=== PATIENT | female | born 1940 | race African-American/Black ===

== ENCOUNTER 2019-02-07 10:38 | Inpatient (IN) | payer MEDICAID, MEDICARE ==
[2019-02-07 11:25] LABS: Bilirubin Negative (Negative); Blood, Urine Negative (Negative); Clarity Clear (Clear); Glucose, Urine (Dipstick) Normal (Negative); Leukocyte Negative Leu/uL (Negative); Nitrite Negative (Negative); Protein, Urine (Dipstick) Negative (Neg-Trace); Urobilinogen Normal mg/dL (Less than 2)
[2019-02-07 11:39] LABS: #Basophils 0.1 thou/uL (0.0-0.2); #Eosinphils 0.1 thou/uL (0.0-0.7); #Lymphocytes 1.2 thou/uL (1.20-3.40); #Monocytes 0.5 thou/uL (0.11-0.59); #Neutrophils 9.6 thou/uL (1.40-6.50); %Basophils 0.6 % (0.0-1.0); %Eosinophils 0.6 % (0.0-10.0); %Lymphocytes 10.7 % (21.0-51.0); %Monocytes 4.4 % (0.0-10.0); %Neutrophils 83.7 % (42.0-75.0); Hemoglobin 12.1 g/dL (12.0-16.0); Mean Corpuscular HGB CONC 29.3 g/dL (32.0-36.0); Mean Corpuscular Hemoglobin 19.2 pg (27.0-31.0); Mean Corpuscular Volume 65.6 fL (78.0-98.0); Mean Platelet Volume 7.9 fL (7.4-10.4); Platelet Count 203 thou/uL (130-400); RBC Distribution Width 20.9 % (11.5-14.5); White Blood Cell (WBC) Count 11.5 thou/uL (4.8-10.8)
--- NOTE | 2019-02-07 11:49 | CT ---
CT BRAIN NONCONTRAST: DATE: 02/07/2019 HISTORY: 78-year-old female with altered mental status FINDINGS: There is no evidence of acute intra-axial or extra-axial hemorrhage. There is no midline shift or any other mass effect. There is no extra-axial fluid collection. There is no evidence of obstructive hydrocephalus. Calvarium is intact. There is diffuse brain parenchymal volume loss. There are low att enuation areas in the white matter. These are nonspecific, but in a patient of this age, they are probably chronic ischemic white matter changes due to microvascular atherosclerosis. Tiny old lacunar infarction in left basal ganglia or anterior limb of left internal capsule. No interval change overall compared to 03/25/2013. Bilateral mastoid effusions again noted. Frontal, sphenoid, and ethmo id sinuses are grossly clear. IMPRESSION: 1) No acute intracranial findings. 2) involutional changes and chronic ischemic white matter changes. 3) tiny old lacunar infarction in left corpus striatum. 4) bilateral mastoid effusions.
[2019-02-07 11:53] LABS: Hypochromia MODERATE=16-30 cells (100X) (0-5/hpf); MDiff Complete? YES; Microcytosis MODERATE=15-30 cells (100X) (0-5/hpf); Platelet Morphology Comment Appears Adequate; Polychromasia SLIGHT = 2-3 cells (100X) (0-2/hpf); Schistocytes SLIGHT = 2-5 cells (100X) (0-1/hpf); Target Cells SLIGHT = 2-5 cells (100X) (0-1/hpf)
--- NOTE | 2019-02-07 11:59 | RAD ---
PORTABLE CHEST: Date: 02/07/19 HISTORY: Cough. COMPARISON: 02/25/13 study. FINDINGS: Heart size is enlarged. There are atherosclerotic changes of the aorta. There is some linear change i n the lung bases, slightly more prominent in the right base, probably related to scar versus atelecta sis. No confluent infiltrative process seen. IMPRESSION: 1. Cardiomegaly. 2. Bibasilar interstitial lung change consistent with some atelectasis versus scarring. POS: [facility]
[2019-02-07] MEDS ORDERED: Piperacillin/Tazobactam 4.5 GM VIAL ONE (12:06)
[2019-02-07 12:12] LABS: ALT (SGPT) 15 U/L (8-55); AST (SGOT) 14 U/L (5-34); Albumin 4.1 g/dL (3.4-4.8); Alkaline Phosphatase 118 U/L (40-150); Anion Gap 14 mmol/L (10-20); BUN (Urea Nitrogen) 27 mg/dL (9.8-20.1); Bilirubin, Total 0.3 mg/dL (0.2-1.2); Calc. Creatinine Clearance 0 mL/min (70-130); Calcium 9.7 mg/dL (7.8-10.44); Carbon Dioxide 23 mmol/L (23-31); Chloride 107 mmol/L (98-107); Estimated GFR-MDRD 45; Globulin 3.3 g/dL (2.4-3.5); Glucose 135 mg/dL (83-110); Potassium 4.4 mmol/L (3.5-5.1); Protein, Total 7.4 g/dL (6.0-8.3); Sodium 140 mmol/L (136-145)
[2019-02-07] MEDS ORDERED: Vancomycin HCl 500 MG VIAL ONE (12:40)
[2019-02-07] MEDS ORDERED: Bisacodyl 5 MG TAB PO PRN (13:34)
[2019-02-07] MEDS ORDERED: Acetaminophen 650 MG Suppository PR PRN (13:34)
[2019-02-07] MEDS ORDERED: Acetaminophen 325 MG TAB PO PRN (13:34)
[2019-02-07] MEDS ORDERED: Dextrose 50% Abboject 50 ML SYRINGE SLOW IVP PRN (13:36)
[2019-02-07] MEDS ORDERED: Dextrose 5% in Water 1,000 ML IV PRN (13:36)
[2019-02-07] MEDS ORDERED: HumaLOG 300 UNITS/3 ML VIAL SC PRN (13:36)
--- NOTE | 2019-02-07 14:10 | HP ---
PRIMARY CARE PROVIDER: Jose Cruz Lira MD. CHIEF COMPLAINT: Altered mental status. HISTORY OF PRESENT ILLNESS: Ms. Castrejon is a pleasant 78-year-old lady, who was seen at [facility] on February 07, 2019. The patient is unable to provide any significant history. Her daughter, Kinga, is by the bedside, but she is unable to provide any significant history either. Collateral history was obtained from review of medical records and discussion with the emergency room physician. Ms. Castrejon is a resident at [facility]. She was reportedly found to be less responsive than usual. She also had a cough. She apparently had foul-smelling urine. She was therefore brought to the emergency room. The patient is mumbling, talking about her mother. She is unable to answer any questions. REVIEW OF SYSTEMS: All systems were reviewed and found to be negative except for the pertinent positives mentioned above. PAST MEDICAL HISTORY: 1. Diabetes mellitus type 2. 2. Gastroesophageal reflux disease. 3. Osteoarthritis. 4. Hypertension. 5. Alzheimer disease. 6. Asthma. 7. Chronic obstructive pulmonary disease. 8. Renal failure. PAST SURGICAL HISTORY: None. PSYCHIATRIC HISTORY: Schizophrenia. ALLERGIES: NO KNOWN DRUG ALLERGIES. CURRENT MEDICATIONS: 1. Aspirin 81 mg daily. 2. Iron 325 mg daily. 3. Allopurinol 100 mg daily. 4. Advair Diskus 1 puff 2 times a day. CODE STATUS: I discussed her code status with her daughter. The patient is full code. FAMILY HISTORY: No family history of premature coronary artery disease. SOCIAL HISTORY: No history of tobacco use, alcohol or recreational drug use. PHYSICAL EXAMINATION: GENERAL: On examination, Ms. Castrejon is awake and alert, not in acute distress. VITAL SIGNS: Blood pressure is 107/80, pulse 99, respiratory rate 24, and oxygen saturation 98% on room air. She is afebrile. EYES: No scleral icterus, no conjunctival pallor. ENT: Moist mucosal membranes, no oropharyngeal erythema or exudates. NECK: Supple, nontender, trachea is midline. RESPIRATORY: Accessory muscles of breathing are not active. Chest wall movements are symmetric bilaterally. Lungs are clear to auscultation without wheeze, rhonchi, or crepitations. CARDIOVASCULAR: S1 and S2 are heard, regular. Peripheral pulses palpable. No carotid bruit. No pericardial rub. ABDOMEN: Soft, nontender, bowel sounds are heard, no hepatomegaly, no splenomegaly. LYMPHATIC: No cervical lymphadenopathy. NEUROLOGIC: Full neurologic examination was not possible secondary to the patient's noncooperation. There is no facial droop. Deep tendon reflexes are 2+. MUSCULOSKELETAL: The patient is able to move all 4 extremities. SKIN: No rashes or subcutaneous nodules. PSYCHIATRIC: Normal mood, normal affect, unable to assess orientation to person , place, or time. LABORATORY DATA AND IMAGING DATA: Ms. Castrejon's labs and investigations were reviewed. I reviewed her electrocardiogram, which shows normal sinus rhythm, no ST changes to suggest an acute coronary syndrome. I also reviewed her chest x-ray, which shows bibasilar infiltrates. Noncontrast CT scan of the brain did not show any acute intracranial findings. She has leukocytosis with 11,500 white cells, of which 83.7% are neutrophils. Hemoglobin and platelet count are normal. She has elevated creatinine of 1.38, last known creatinine 1.44 on March 26, 2013. Blood urea nitrogen is elevated at 27. Comprehensive metabolic profile is otherwise unremarkable. Lactic acid is elevated at 2.4. Urinalysis is negative for nitrite and leukocyte esterase. ASSESSMENT AND PLAN: Ms. Castrejon is a pleasant 78-year-old lady, who was seen at [facility] on February 07, 2019. Her problem list includes: 1. Sepsis: Ms. Castrejon is presenting with sepsis, most likely secondary to pneumonia. She will be admitted to the hospital for further management. 2. Pneumonia: She will be treated with Zosyn for pneumonia. We will follow blood cultures as well. Further management depending on how she responds to this line of therapy. 3. Chronic kidney disease stage 3: This appears to be stable. 4. Diabetes mellitus type 2: The patient does not appear to be on any diabetes medications at this time. We will start her on Accu-Cheks and insulin sliding scale. 5. Chronic obstructive pulmonary disease: This appears to be stable. 6. Hypertension: We will resume the patient's home medications, monitor vital signs, and titrate antihypertensives as needed. 7. Alzheimer disease: We will resume home medications once clarified. Many thanks for allowing me to participate in your patient's care. Please feel free to contact me with any questions or concerns. LEVEL OF RISK: High. LEVEL OF COMPLEXITY: High. Job ID: [id number] [facility] SYSTEM[facility]os
[2019-02-07 15:45] LABS: Lactic Acid 0.8 mmol/L (0.5-2.2)
[2019-02-07 17:06] VITALS: BMI 22.8
[2019-02-07] MEDS: Piperacillin/Tazobactam 4.5 GM in Sodium Chloride 0.9% 100 ML IVPB SCH (19:38)
[2019-02-08] MEDS: Piperacillin/Tazobactam 4.5 GM in Sodium Chloride 0.9% 100 ML IVPB SCH ×3 (04:51→20:14)
[2019-02-08 07:07] LABS: Hemoglobin 10.8 g/dL (12.0-16.0); Mean Corpuscular HGB CONC 30.3 g/dL (32.0-36.0); Mean Corpuscular Hemoglobin 19.8 pg (27.0-31.0); Mean Corpuscular Volume 65.1 fL (78.0-98.0); RBC Distribution Width 20.5 % (11.5-14.5); Red Blood Cell (RBC) Count 5.49 mill/uL (4.20-5.40); White Blood Cell (WBC) Count 8.9 thou/uL (4.8-10.8)
[2019-02-08 07:19] LABS: Anion Gap 13 mmol/L (10-20); BUN (Urea Nitrogen) 24 mg/dL (9.8-20.1); Calc. Creatinine Clearance 29 mL/min (70-130); Calcium 9.1 mg/dL (7.8-10.44); Carbon Dioxide 22 mmol/L (23-31); Chloride 108 mmol/L (98-107); Estimated GFR-MDRD 40; Glucose 97 mg/dL (83-110); Potassium 4.7 mmol/L (3.5-5.1); Sodium 138 mmol/L (136-145)
[2019-02-08 07:50] LABS: #Eosinphils 0.2 thou/uL (0.0-0.7); #Lymphocytes 1.8 thou/uL (1.20-3.40); #Monocytes 0.8 thou/uL (0.11-0.59); #Neutrophils 6.1 thou/uL (1.40-6.50); %Basophils 0.1 % (0.0-1.0); %Monocytes 8.7 % (0.0-10.0); %Neutrophils 69.1 % (42.0-75.0); Anisocytosis MODERATE=16-30 cells (100X) (0-5/hpf); Hypochromia MODERATE=16-30 cells (100X) (0-5/hpf); MDiff Complete? YES; Mean Platelet Volume 8.9 fL (7.4-10.4); Microcytosis MODERATE=15-30 cells (100X) (0-5/hpf); Platelet Count 197 thou/uL (130-400); Platelet Morphology Comment Appears Adequate; Polychromasia SLIGHT = 2-3 cells (100X) (0-2/hpf)
[2019-02-08] MEDS ORDERED: Enoxaparin Sodium 40 MG/0.4 ML SYRINGE SC SCH (09:00)
[2019-02-08] MEDS ORDERED: Ondansetron ODT 8 MG TAB PO PRN (10:38)
[2019-02-08] MEDS: Polyethylene Glycol OPTH DROP 15 ML BOT EA EYE SCH ×2 (14:41→20:16)
--- NOTE | 2019-02-08 16:52 | PDOC.HOSPP ---
- Subjective Encounter Date: 02/08/19 Encounter Time: 09:00 Subjective: Pt seen for followup re: pneumonia. Pt unable to provide any history, could not complete ROS. - Objective Vital Signs & Weight: Vital Signs (12 hours) Temp Pulse Resp BP Pulse Ox 02/08/19 16:00 97.5 F L 98 18 140/79 96 02/08/19 12:00 98.1 F 84 20 146/79 H 99 02/08/19 08:21 98.4 F 100 17 118/61 90 L 02/08/19 08:00 92 L 02/08/19 06:14 97.7 F 97 18 152/72 H 95 Weight Admit Weight 137 lb Weight 137 lb I&O: 02/07/19 02/08/19 02/09/19 06:59 06:59 06:59 Intake Total 300 Output Total 450 Balance -150 Result Diagrams: 02/08/19 06:52 02/08/19 06:52 Additional Labs: Accuchecks 02/08/19 02/08/19 02/08/19 16:10 11:15 05:58 POC Glucose 156 H 106 97 02/07/19 02/07/19 19:44 17:08 POC Glucose 178 H 91 Labs and MARs reviewed by ks Hospitalist ROS - Medication Medications: Active Medications Generic Name Dose Route Start Last Admin Trade Name Mannq PRN Reason Stop Dose Admin Enoxaparin Sodium 40 mg 02/08/19 09:00 02/08/19 08:29 Lovenox SC 40 mg 0900 KARI Administration Piperacillin Sod/Tazobactam 100 mls @ 200 mls/hr 02/07/19 20:00 02/08/19 11: 18 Sod 4.5 gm/ Sodium Chloride IVPB 100 mls 0400,1200,2000 KARI Administration Propylene Glycol 1 drop 02/08/19 15:00 02/08/19 14:41 Systane Opth Drop 15ml Bot EA EYE 1 drop TID KARI Administration - Exam General Appearance: awake alert ENT: moist mucosa Neck: supple, no JVD Heart: RRR, no rubs Respiratory: CTAB Gastrointestinal: soft, non-tender, normal bowel sounds Skin: normal turgor Musculoskeletal: normal tone, normal strength Psychiatric - other findings: Unable to assess Hosp A/P (1) Pneumonia Code(s): J18.9 - PNEUMONIA, UNSPECIFIED ORGANISM Status: Acute (2) Chronic kidney disease, stage 3 Code(s): N18.3 - CHRONIC KIDNEY DISEASE, STAGE 3 (MODERATE) Status: Chronic (3) DM2 (diabetes mellitus, type 2) Status: Chronic (4) Alzheimers disease Code(s): G30.9 - ALZHEIMER'S DISEASE, UNSPECIFIED; F02.80 - DEMENTIA IN OTH DISEASES CLASSD ELSWHR W/O BEHAVRL DISTURB Status: Chronic (5) GERD (gastroesophageal reflux disease) Code(s): K21.9 - GASTRO-ESOPHAGEAL REFLUX DISEASE WITHOUT ESOPHAGITIS Status: Chronic (6) COPD (chronic obstructive pulmonary disease) Status: Chronic (7) Asthma Code(s): J45.909 - UNSPECIFIED ASTHMA, UNCOMPLICATED Status: Chronic - Plan plan discussed w/ family, continue antibiotics Continue IV Zosyn, follow blood cultures. Reasonable control of blood pressure and blood sugars. COPD/asthma stable. Continue quetiapine for agitation.
[2019-02-08] MEDS: Mometasone/Formoterol 120 PUFF INHALER INH SCH (18:25)
[2019-02-09] MEDS: Piperacillin/Tazobactam 4.5 GM in Sodium Chloride 0.9% 100 ML IVPB SCH ×2 (03:15→11:55)
[2019-02-09] MEDS: Mometasone/Formoterol 120 PUFF INHALER INH SCH ×2 (06:57→18:53)
[2019-02-09] MEDS: Allopurinol 100 MG TAB PO SCH (08:26)
[2019-02-09] MEDS: Aspirin Chewable 81 MG TAB PO SCH (08:26)
[2019-02-09] MEDS: Multivitamin W/ Minerals 1 TAB PO SCH (08:26)
[2019-02-09] MEDS: Ferrous Sulfate 325 MG TAB PO SCH (08:26)
[2019-02-09] MEDS: Enoxaparin Sodium 30 MG/0.3 ML SYRINGE SC SCH (08:27)
[2019-02-09] MEDS: Polyethylene Glycol OPTH DROP 15 ML BOT EA EYE SCH ×3 (08:27→23:06)
[2019-02-09 11:38] LABS: Anion Gap 14 mmol/L (10-20); BUN (Urea Nitrogen) 22 mg/dL (9.8-20.1); Calc. Creatinine Clearance 31 mL/min (70-130); Calcium 9.2 mg/dL (7.8-10.44); Carbon Dioxide 21 mmol/L (23-31); Chloride 107 mmol/L (98-107); Estimated GFR-MDRD 42; Glucose 89 mg/dL (83-110); Potassium 4.5 mmol/L (3.5-5.1); Sodium 137 mmol/L (136-145)
[2019-02-09 12:14] LABS: #Eosinphils 0.3 thou/uL (0.0-0.7); #Lymphocytes 1.8 thou/uL (1.20-3.40); #Monocytes 0.7 thou/uL (0.11-0.59); #Neutrophils 4.9 thou/uL (1.40-6.50); %Basophils 0.3 % (0.0-1.0); %Eosinophils 3.9 % (0.0-10.0); %Lymphocytes 23.9 % (21.0-51.0); %Monocytes 8.6 % (0.0-10.0); %Neutrophils 63.2 % (42.0-75.0); Anisocytosis MODERATE=16-30 cells (100X) (0-5/hpf); Burr Cells SLIGHT = 2-5 cells (100X) (0-1/hpf); Elliptocytes SLIGHT = 2-5 cells (100X) (0-1/hpf); Hemoglobin 11.5 g/dL (12.0-16.0); Hypochromia SLIGHT = 6-15 cells (100X) (0-5/hpf); MDiff Complete? YES; Mean Corpuscular HGB CONC 29.8 g/dL (32.0-36.0); Mean Corpuscular Hemoglobin 19.9 pg (27.0-31.0); Mean Corpuscular Volume 66.8 fL (78.0-98.0); Mean Platelet Volume 8.3 fL (7.4-10.4); Microcytosis MODERATE=15-30 cells (100X) (0-5/hpf); Platelet Count 172 thou/uL (130-400); Platelet Morphology Comment Appears Adequate; RBC Distribution Width 21.1 % (11.5-14.5); Red Blood Cell (RBC) Count 5.79 mill/uL (4.20-5.40); Schistocytes SLIGHT = 2-5 cells (100X) (0-1/hpf); Target Cells SLIGHT = 2-5 cells (100X) (0-1/hpf); White Blood Cell (WBC) Count 7.7 thou/uL (4.8-10.8)
--- NOTE | 2019-02-09 17:26 | PDOC.HOSPP ---
- Subjective Encounter Date: 02/09/19 Encounter Time: 09:20 Subjective: Pt seen for followup re: pneumonia. Pt is nonverbal, unable to complete ROS. - Objective Vital Signs & Weight: Vital Signs (12 hours) Temp Pulse Resp BP Pulse Ox 02/09/19 08:00 97 02/09/19 07:53 97.6 F 89 20 151/76 H 97 Weight Admit Weight 137 lb Weight 137 lb I&O: 02/08/19 02/09/19 02/10/19 06:59 06:59 06:59 Intake Total 300 500 Output Total 450 600 Balance -150 -100 Result Diagrams: 02/09/19 10:59 02/09/19 10:59 Additional Labs: Accuchecks 02/09/19 02/09/19 02/09/19 16:15 11:29 06:36 POC Glucose 118 H 87 94 02/09/19 02/08/19 05:03 19:22 POC Glucose 67 L 171 H Hospitalist ROS - Medication Medications: Active Medications Generic Name Dose Route Start Last Admin Trade Name Freq PRN Reason Stop Dose Admin Acetaminophen 650 mg 02/07/19 13:34 02/08/19 20:16 Tylenol PO 650 mg Q4H PRN Administration Headache/Fever/Mild Pain (1-3) Allopurinol 100 mg 02/09/19 09:00 02/09/19 08:26 Zyloprim PO 100 mg DAILY KARI Administration Aspirin 81 mg 02/09/19 09:00 02/09/19 08:26 Aspirin Chewable PO 81 mg DAILY KARI Administration Enoxaparin Sodium 30 mg 02/09/19 09:00 02/09/19 08:27 Lovenox SC 30 mg 09 KARI Administration Ferrous Sulfate 325 mg 02/09/19 09:00 02/09/19 08:26 Feosol PO 325 mg DAILY KARI Administration Piperacillin Sod/Tazobactam 100 mls @ 200 mls/hr 02/07/19 20:00 02/09/19 11: 55 Sod 4.5 gm/ Sodium Chloride IVPB 100 mls 0400,1200,2000 KARI Administration Iron/Minerals/Multivitamins 1 tab 02/09/19 09:00 02/09/19 08:26 Theragran M PO 1 tab DAILY KARI Administration Mometasone Furoate/Formoterol Fumar 2 puff 02/08/19 18:30 02/09/19 06:57 Dulera 100 Mcg/5 Mcg Inhaler INH 2 puff BID-RT KARI Administration Propylene Glycol 1 drop 02/08/19 15:00 02/09/19 14:54 Systane Opth Drop 15ml Bot EA EYE 1 drop TID KARI Administration Quetiapine Fumarate 25 mg 02/08/19 21:00 02/09/19 08:26 Seroquel PO 25 mg BID KARI Administration - Exam General Appearance: NAD Eye: anicteric sclera ENT: moist mucosa Neck: supple Heart: RRR Respiratory: CTAB Gastrointestinal: soft, non-tender Musculoskeletal: normal tone Psychiatric: normal affect Hosp A/P (1) Pneumonia Code(s): J18.9 - PNEUMONIA, UNSPECIFIED ORGANISM Status: Acute (2) Chronic kidney disease, stage 3 Code(s): N18.3 - CHRONIC KIDNEY DISEASE, STAGE 3 (MODERATE) Status: Chronic (3) DM2 (diabetes mellitus, type 2) Status: Chronic (4) Alzheimers disease Code(s): G30.9 - ALZHEIMER'S DISEASE, UNSPECIFIED; F02.80 - DEMENTIA IN OTH DISEASES CLASSD ELSWHR W/O BEHAVRL DISTURB Status: Chronic (5) GERD (gastroesophageal reflux disease) Code(s): K21.9 - GASTRO-ESOPHAGEAL REFLUX DISEASE WITHOUT ESOPHAGITIS Status: Chronic (6) COPD (chronic obstructive pulmonary disease) Status: Chronic (7) Asthma Code(s): J45.909 - UNSPECIFIED ASTHMA, UNCOMPLICATED Status: Chronic - Plan Switch to oral antibiotics, patient improving. HTN controlled. COPD/asthma stable. Continue Seroquel.
[2019-02-10 06:31] LABS: #Eosinphils 0.2 thou/uL (0.0-0.7); #Lymphocytes 1.6 thou/uL (1.20-3.40); #Monocytes 0.5 thou/uL (0.11-0.59); #Neutrophils 4.6 thou/uL (1.40-6.50); %Basophils 0.4 % (0.0-1.0); %Eosinophils 3.4 % (0.0-10.0); %Lymphocytes 22.7 % (21.0-51.0); %Monocytes 6.5 % (0.0-10.0); Hemoglobin 11.1 g/dL (12.0-16.0); Mean Corpuscular HGB CONC 29.4 g/dL (32.0-36.0); Mean Corpuscular Hemoglobin 19.5 pg (27.0-31.0); Mean Corpuscular Volume 66.2 fL (78.0-98.0); Mean Platelet Volume 8.6 fL (7.4-10.4); Platelet Count 193 thou/uL (130-400); RBC Distribution Width 21.3 % (11.5-14.5); Red Blood Cell (RBC) Count 5.71 mill/uL (4.20-5.40); White Blood Cell (WBC) Count 6.9 thou/uL (4.8-10.8)
[2019-02-10] MEDS: Mometasone/Formoterol 120 PUFF INHALER INH SCH ×2 (06:35→18:02)
[2019-02-10 06:43] LABS: Anion Gap 14 mmol/L (10-20); BUN (Urea Nitrogen) 25 mg/dL (9.8-20.1); Calc. Creatinine Clearance 27 mL/min (70-130); Calcium 9.3 mg/dL (7.8-10.44); Carbon Dioxide 20 mmol/L (23-31); Chloride 107 mmol/L (98-107); Estimated GFR-MDRD 36; Glucose 86 mg/dL (83-110); Potassium 5.4 mmol/L (3.5-5.1); Sodium 136 mmol/L (136-145)
[2019-02-10] MEDS: Ferrous Sulfate 325 MG TAB PO SCH (08:35)
[2019-02-10] MEDS: Allopurinol 100 MG TAB PO SCH (08:35)
[2019-02-10] MEDS: Aspirin Chewable 81 MG TAB PO SCH (08:36)
[2019-02-10] MEDS: Multivitamin W/ Minerals 1 TAB PO SCH (08:36)
[2019-02-10] MEDS: Polyethylene Glycol OPTH DROP 15 ML BOT EA EYE SCH ×3 (08:36→20:16)
[2019-02-10] MEDS: Enoxaparin Sodium 30 MG/0.3 ML SYRINGE SC SCH (08:36)
--- NOTE | 2019-02-10 14:50 | PQF ---
CLINICAL DOCUMENTATION IMPROVEMENT CLARIFICATION FORM: ICD-10 Updated PLEASE DO AN ADDENDUM TO THE PROGRESS NOTE WITH ANY DOCUMENTATION UPDATES OR ADDITIONS AND CARRY THROUGH TO DC SUMMARY. THANK YOU. DATE: 02/10/2019 ATTN: Dr. Alicia Please exercise your independent, professional judgment in responding to the clarification form. Clinical indicators are provided on the bottom of this form for your review Please check appropriate box(s) to clarify if the following diagnosis has been ruled in or ruled out: SEPSIS [ ] Ruled in diagnosis [ ] Continue to treat [ ] Resolved [ ] Ruled out diagnosis [ ] Cannot rule out diagnosis [ ] Other diagnosis [ ] Unable to determine In addition, please specify: Present on Admission (POA): [ ] Yes [ ] No [ ] Unable to determine For continuity of documentation, please document condition throughout progress notes and discharge summary. Thank You. CLINICAL INDICATORS - SIGNS / SYMPTOMS / LABS H&P 02/07: Altered mental status. leukocytosis with 11,500 white cells Lactic acid is at 2.4 presenting with sepsis, most likely secondary to pneumonia. RISKS: H&P 02/07: 78 yo. Hx of DM2, COPD, HTN. Pneumonia TREATMENT: MAR: 02/07-02/09: Zosyn 4.5 gm IV MAR: Order 02/09: Levaquin 750 mg po q 48 H Thank you, Cesia (This form is maintained as a part of the permanent medical record) 2014 [employer]. All Rights Reserved Cesia Hart, RN, BSN [email or web address] Office: [phone] [facility]
--- NOTE | 2019-02-10 15:12 | PDOC.HOSPP ---
- Subjective Encounter Date: 02/10/19 Encounter Time: 15:11 Subjective: Pt seen for followup re: pneumonia. Nonverbal, unable to complete ROS. - Objective Vital Signs & Weight: Vital Signs (12 hours) Temp Pulse Resp BP Pulse Ox 02/10/19 11:26 97.4 F L 81 17 111/74 97 02/10/19 07:10 97.3 F L 78 16 134/78 95 Weight Admit Weight 137 lb Weight 137 lb I&O: 02/09/19 02/10/19 02/11/19 06:59 06:59 06:59 Intake Total 500 Output Total 600 Balance -100 Result Diagrams: 02/10/19 05:58 02/10/19 05:57 Additional Labs: Accuchecks 02/10/19 02/10/19 02/09/19 11:27 04:07 19:26 POC Glucose 160 H 95 140 H 02/09/19 16:15 POC Glucose 118 H Labs and MARs reviewed by me. Hospitalist ROS - Medication Medications: Active Medications Generic Name Dose Route Start Last Admin Trade Name Freq PRN Reason Stop Dose Admin Acetaminophen 650 mg 02/07/19 13:34 02/08/19 20:16 Tylenol PO 650 mg Q4H PRN Administration Headache/Fever/Mild Pain (1-3) Allopurinol 100 mg 02/09/19 09:00 02/10/19 08:35 Zyloprim PO 100 mg DAILY [facility] Administration Aspirin 81 mg 02/09/19 09:00 02/10/19 08:36 Aspirin Chewable PO 81 mg DAILY KARI Administration Enoxaparin Sodium 30 mg 02/09/19 09:00 02/10/19 08:36 Lovenox SC Not Given 899 [facility] Ferrous Sulfate 325 mg 02/09/19 09:00 02/10/19 08:35 Feosol PO 325 mg DAILY [facility] Administration Iron/Minerals/Multivitamins 1 tab 02/09/19 09:00 02/10/19 08:36 Theragran M PO 1 tab DAILY [facility] Administration Levofloxacin 750 mg 02/09/19 17:30 02/09/19 18:33 Levaquin PO 750 mg Q48H KARI Administration Mometasone Furoate/Formoterol Fumar 2 puff 02/08/19 18:30 02/10/19 06:35 Dulera 100 Mcg/5 Mcg Inhaler INH 2 puff BID-RT KARI Administration Propylene Glycol 1 drop 02/08/19 15:00 02/10/19 14:44 Systane Opth Drop 15ml Bot EA EYE Not Given TID KARI Quetiapine Fumarate 25 mg 02/08/19 21:00 02/10/19 08:35 Seroquel PO 25 mg BID KARI Administration - Exam General Appearance: NAD Eye: anicteric sclera ENT: moist mucosa Neck: supple Heart: RRR Respiratory: CTAB Gastrointestinal: soft, non-tender, normal bowel sounds Musculoskeletal: no muscle wasting Psychiatric: normal affect Hosp A/P (1) Pneumonia Code(s): J18.9 - PNEUMONIA, UNSPECIFIED ORGANISM Status: Acute (2) Chronic kidney disease, stage 3 Code(s): N18.3 - CHRONIC KIDNEY DISEASE, STAGE 3 (MODERATE) Status: Chronic (3) DM2 (diabetes mellitus, type 2) Status: Chronic (4) Alzheimers disease Code(s): G30.9 - ALZHEIMER'S DISEASE, UNSPECIFIED; F02.80 - DEMENTIA IN OTH DISEASES CLASSD ELSWHR W/O BEHAVRL DISTURB Status: Chronic (5) GERD (gastroesophageal reflux disease) Code(s): K21.9 - GASTRO-ESOPHAGEAL REFLUX DISEASE WITHOUT ESOPHAGITIS Status: Chronic (6) COPD (chronic obstructive pulmonary disease) Status: Chronic (7) Asthma Code(s): J45.909 - UNSPECIFIED ASTHMA, UNCOMPLICATED Status: Chronic (8) Sepsis Code(s): A41.9 - SEPSIS, UNSPECIFIED ORGANISM Status: Resolved Plan: present on admission, secondary to pneumonia. - Plan plan discussed w/ family, continue antibiotics Pt on oral levofloxacin, observe for one more day. HTN controlled. COPD/asthma controlled. Pt is on Seroquel, no agitation.
[2019-02-11] MEDS: Mometasone/Formoterol 120 PUFF INHALER INH SCH (07:51)
[2019-02-11] MEDS: Ferrous Sulfate 325 MG TAB PO SCH (09:00)
[2019-02-11] MEDS: Aspirin Chewable 81 MG TAB PO SCH (09:00)
[2019-02-11] MEDS: Allopurinol 100 MG TAB PO SCH (09:00)
[2019-02-11] MEDS: Multivitamin W/ Minerals 1 TAB PO SCH (09:00)
[2019-02-11] MEDS: Enoxaparin Sodium 30 MG/0.3 ML SYRINGE SC SCH (09:01)
[2019-02-11] MEDS: Polyethylene Glycol OPTH DROP 15 ML BOT EA EYE SCH (12:46)
[2019-02-11 13:17] LABS: #Eosinphils 0.2 thou/uL (0.0-0.7); #Lymphocytes 1.9 thou/uL (1.20-3.40); #Monocytes 0.4 thou/uL (0.11-0.59); %Basophils 0.3 % (0.0-1.0); %Eosinophils 2.3 % (0.0-10.0); %Lymphocytes 29.3 % (21.0-51.0); %Monocytes 6.7 % (0.0-10.0); %Neutrophils 61.4 % (42.0-75.0); Hemoglobin 13.3 g/dL (12.0-16.0); Mean Corpuscular HGB CONC 29.5 g/dL (32.0-36.0); Mean Corpuscular Hemoglobin 19.7 pg (27.0-31.0); Mean Corpuscular Volume 66.6 fL (78.0-98.0); Mean Platelet Volume 8.5 fL (7.4-10.4); Platelet Count 189 thou/uL (130-400); RBC Distribution Width 21.7 % (11.5-14.5); Red Blood Cell (RBC) Count 6.78 mill/uL (4.20-5.40); White Blood Cell (WBC) Count 6.5 thou/uL (4.8-10.8)
[2019-02-11 13:38] LABS: Anion Gap 14 mmol/L (10-20); BUN (Urea Nitrogen) 29 mg/dL (9.8-20.1); Calc. Creatinine Clearance 26 mL/min (70-130); Calcium 9.8 mg/dL (7.8-10.44); Carbon Dioxide 23 mmol/L (23-31); Chloride 103 mmol/L (98-107); Estimated GFR-MDRD 35; Glucose 97 mg/dL (83-110); Potassium 4.5 mmol/L (3.5-5.1); Sodium 135 mmol/L (136-145)
[2019-02-11 13:46] LABS: Anisocytosis MODERATE=16-30 cells (100X) (0-5/hpf); Hypochromia MODERATE=16-30 cells (100X) (0-5/hpf); Large Platelets SLIGHT; MDiff Complete? YES; Microcytosis MODERATE=15-30 cells (100X) (0-5/hpf); Ovalocytes SLIGHT = 2-5 cells (100X) (0-1/hpf); Platelet Morphology Comment Appears Adequate; Polychromasia SLIGHT = 2-3 cells (100X) (0-2/hpf); Schistocytes SLIGHT = 2-5 cells (100X) (0-1/hpf); Spherocytes SLIGHT = 1-5 cells (100X) (None Seen); Target Cells SLIGHT = 2-5 cells (100X) (0-1/hpf)
[2019-02-11 15:41] VITALS: BP 139/81; TEMP 98.3
--- NOTE | 2019-02-12 10:59 | DIS ---
DATE OF ADMISSION: 02/07/2019 DATE OF DISCHARGE: 02/11/2019 PRIMARY CARE PROVIDER: Dr. Ca Vieira. DISCHARGE DIAGNOSES: 1. Sepsis. 2. Pneumonia. 3. Chronic kidney disease, stage 3. CONDITION OF PATIENT ON THE DAY OF DISCHARGE: Stable. PHYSICAL EXAMINATION: GENERAL: The patient is nonverbal. VITAL SIGNS: Stable. HEART: S1 and S2 are heard, regular. LUNGS: Clear to auscultation bilaterally. HOSPITAL COURSE: Ms. Castrejon is a pleasant 78-year-old lady, who was admitted to [facility] on 02/07/2019 for sepsis secondary to pneumonia. She improved with intravenous antibiotics. She is being discharged back to [facility] in a stable condition. DISCHARGE MEDICATIONS: 1. Allopurinol 100 mg daily. 2. Aspirin 81 mg daily. 3. Iron 325 mg daily. 4. Advair Diskus 1 puff 2 times a day. 5. Multivitamins 1 tablet daily. 6. Systane eyedrops 1 drop to each eye 3 times a day. 7. Seroquel 25 mg 2 times a day. 8. Levaquin 750 mg every 48 hours, 3 more doses. FOLLOWUP APPOINTMENTS: The patient is advised to follow up with primary care provider in 3 to 5 days' time. Many thanks for allowing me to participate in your patient's care. Please feel free to contact me with any questions or concerns. DISCHARGE DESTINATION: [facility]. TIME SPENT: Total amount of time spent coordinating this discharge: 31 minutes. ADDENDUM: Ms. Castrejon's creatinine is elevated at 1.69. She is advised to have her chem-7 checked through her primary care provider's office in 3 to 5 days. Her levofloxacin dosing still stays the same adjusted for her renal function. On the day of discharge, she has sodium 135, potassium 4.5, which has resolved from a hyperkalemic level of 5.4 on 02/10/2019. Blood urea nitrogen 29, creatinine 1.69. White count 6500, hemoglobin 13.3, and platelet count 189,000. Job ID: [id number]
== END 2019-02-11 16:03 | DRG 871 ==
LOC: ERS 10:38 → T4-A 12:35
PROVIDERS: ADMIT Internal Medicine; ATTEND Internal Medicine
DX: A41.9 Sepsis, unspecified organism (principal); J18.9 Pneumonia, unspecified organism; K21.9 Gastro-esophageal reflux disease without esophagitis; M19.90 Unspecified osteoarthritis, unspecified site; G30.9 Alzheimer's disease, unspecified; F02.80 Dementia in other diseases classified elsewhere, unspecified severity, without behavioral disturbance, psychotic disturbance, mood disturbance, and anxiety; J44.9 Chronic obstructive pulmonary disease, unspecified; F20.9 Schizophrenia, unspecified; I12.9 Hypertensive chronic kidney disease with stage 1 through stage 4 chronic kidney disease, or unspecified chronic kidney disease; N18.3 Chronic kidney disease, stage 3 (moderate); E11.22 Type 2 diabetes mellitus with diabetic chronic kidney disease; E87.5 Hyperkalemia; Z79.02 Long term (current) use of antithrombotics/antiplatelets; Z79.899 Other long term (current) drug therapy
CPT/HCPCS: 36415; 36416; 51701; 70450; 71045; 80048; 80053; 81003; 83605; 84484; 85025; 87040; 93005; 96365; 96367; J1650; J1956; J2543; J3370; J3490

== ENCOUNTER 2019-02-12 18:25 | Emergency (ER) | payer MEDICARE ==
--- NOTE | 2019-02-12 19:00 | RAD ---
RADIOGRAPH CHEST 1 VIEW: DATE: 02/12/2019 HISTORY: 78-year-old female with sepsis and pneumonia FINDINGS: The thoracic aorta is tortuous and ectatic. There is no evidence of airspace density, cardiomegaly, p ulmonary edema, or pneumothorax. The lateral costophrenic angles are not effaced. IMPRESSION: 1) No acute pulmonary findings. 2) ectasia of thoracic aorta.
[2019-02-12 19:24] LABS: #Eosinphils 0.2 thou/uL (0.0-0.7); #Lymphocytes 1.6 thou/uL (1.20-3.40); #Monocytes 0.4 thou/uL (0.11-0.59); #Neutrophils 4.8 thou/uL (1.40-6.50); %Basophils 0.7 % (0.0-1.0); %Eosinophils 2.2 % (0.0-10.0); %Lymphocytes 22.6 % (21.0-51.0); %Monocytes 6.1 % (0.0-10.0); %Neutrophils 68.4 % (42.0-75.0); Hemoglobin 11.8 g/dL (12.0-16.0); Mean Corpuscular HGB CONC 30.2 g/dL (32.0-36.0); Mean Corpuscular Hemoglobin 19.6 pg (27.0-31.0); Mean Corpuscular Volume 64.8 fL (78.0-98.0); Mean Platelet Volume 9.1 fL (7.4-10.4); Platelet Count 184 thou/uL (130-400); RBC Distribution Width 20.6 % (11.5-14.5); Red Blood Cell (RBC) Count 6.01 mill/uL (4.20-5.40); White Blood Cell (WBC) Count 7.1 thou/uL (4.8-10.8)
--- NOTE | 2019-02-12 19:40 | CT ---
CT BRAIN NONCONTRAST: DATE: 02/12/2019 HISTORY: 78-year-old female with new onset altered mental status and lethargy. FINDINGS: There is no evidence of acute intra-axial or extra-axial hemorrhage. There is no midline shift or any other mass effect. There is no extra-axial fluid collection. There is no evidence of obstructive hydrocephalus. Calvarium is intact. There is diffuse brain parenchymal volume loss. There are low att enuation areas in the white matter. These are nonspecific, but in a patient of this age, they are probably chronic ischemic white matter changes due to microvascular atherosclerosis. Tiny old lacunar infarction at anterior limb of left internal capsule or left basal ganglia. Partial opacification of bilateral mastoid air cells, left greater than right. IMPRESSION: 1) No acute intracranial findings. 2) involutional changes and chronic ischemic white matter changes. 3) tiny old lacunar infarction in left corpus striatum. 4) bilateral mastoid effusions, left greater than right.
[2019-02-12 19:47] LABS: ALT (SGPT) 46 U/L (8-55); AST (SGOT) 22 U/L (5-34); Albumin 3.7 g/dL (3.4-4.8); Alkaline Phosphatase 134 U/L (40-150); Anion Gap 14 mmol/L (10-20); BUN (Urea Nitrogen) 37 mg/dL (9.8-20.1); Bilirubin, Total 0.2 mg/dL (0.2-1.2); CK (CPK) 35 U/L (29-168); Calc. Creatinine Clearance 0 mL/min (70-130); Carbon Dioxide 23 mmol/L (23-31); Chloride 104 mmol/L (98-107); Estimated GFR-MDRD 29; Globulin 3.2 g/dL (2.4-3.5); Glucose 154 mg/dL (83-110); Lipase 60 U/L (8-78); Potassium 5.2 mmol/L (3.5-5.1); Protein, Total 6.9 g/dL (6.0-8.3); Sodium 136 mmol/L (136-145)
[2019-02-12 20:05] LABS: Bilirubin Negative (Negative); Blood, Urine Negative (Negative); Clarity Clear (Clear); Glucose, Urine (Dipstick) Normal (Negative); Leukocyte Negative Leu/uL (Negative); Nitrite Negative (Negative); Protein, Urine (Dipstick) Negative (Neg-Trace); Urobilinogen Normal mg/dL (Less than 2)
== END 2019-02-12 21:31 ==
LOC: ERS 18:25
DX: G30.9 Alzheimer's disease, unspecified (principal); F02.80 Dementia in other diseases classified elsewhere, unspecified severity, without behavioral disturbance, psychotic disturbance, mood disturbance, and anxiety; E11.9 Type 2 diabetes mellitus without complications; K21.9 Gastro-esophageal reflux disease without esophagitis; I10 Essential (primary) hypertension; M19.90 Unspecified osteoarthritis, unspecified site; J45.909 Unspecified asthma, uncomplicated; J44.9 Chronic obstructive pulmonary disease, unspecified; F20.9 Schizophrenia, unspecified; Z79.82 Long term (current) use of aspirin; Z79.899 Other long term (current) drug therapy
CPT/HCPCS: 36415; 36416; 51701; 70450; 71045; 80053; 81003; 82140; 82550; 83690; 83880; 84443; 84484; 85025; 93005; 94760; 96360

== ENCOUNTER 2019-03-19 10:20 | Inpatient (IN) | payer MEDICAID, MEDICARE ==
[2019-03-19 11:22] LABS: #Eosinphils 0.1 thou/uL (0.0-0.7); #Lymphocytes 1.8 thou/uL (1.20-3.40); #Monocytes 0.9 thou/uL (0.11-0.59); #Neutrophils 13.2 thou/uL (1.40-6.50); %Basophils 0.3 % (0.0-1.0); %Eosinophils 0.4 % (0.0-10.0); %Lymphocytes 11.5 % (21.0-51.0); %Monocytes 5.5 % (0.0-10.0); %Neutrophils 82.3 % (42.0-75.0); Hemoglobin 11.9 g/dL (12.0-16.0); Mean Corpuscular Hemoglobin 20.1 pg (27.0-31.0); Mean Corpuscular Volume 66.8 fL (78.0-98.0); Mean Platelet Volume 9.4 fL (7.4-10.4); Platelet Count 170 thou/uL (130-400); RBC Distribution Width 21.8 % (11.5-14.5); Red Blood Cell (RBC) Count 5.96 mill/uL (4.20-5.40)
[2019-03-19 11:37] LABS: ALT (SGPT) 15 U/L (8-55); AST (SGOT) 21 U/L (5-34); Albumin 4.3 g/dL (3.4-4.8); Alkaline Phosphatase 118 U/L (40-110); Anion Gap 15 mmol/L (10-20); BUN (Urea Nitrogen) 36 mg/dL (9.8-20.1); Bilirubin, Total 0.3 mg/dL (0.2-1.2); Calc. Creatinine Clearance 0 mL/min (70-130); Calcium 9.5 mg/dL (7.8-10.44); Carbon Dioxide 22 mmol/L (23-31); Chloride 113 mmol/L (98-107); Estimated GFR-MDRD 37; Globulin 3.6 g/dL (2.4-3.5); Glucose 175 mg/dL (83-110); Potassium 5.2 mmol/L (3.5-5.1); Protein, Total 7.9 g/dL (6.0-8.3); Sodium 145 mmol/L (136-145)
--- NOTE | 2019-03-19 11:50 | RAD ---
PORTABLE CHEST 1 VIEW: Date: 03/19/19 Time: 1107 hours HISTORY: Syncope. FINDINGS: Comparison made with exam of 02/12/19. The heart size is normal. The aorta is tortuous. No focal areas of consolidation, pneumothoraces, or pleural effusions are seen. There are degenerative changes in the shoulder joints. IMPRESSION: No acute process. POS: [facility]
[2019-03-19 12:27] LABS: Bacteria/HPF 4+ HPF (None Seen); Bilirubin Negative (Negative); Blood, Urine Negative (Negative); Clarity Clear (Clear); Glucose, Urine (Dipstick) Normal (Negative); Leukocyte 500 Leu/uL (Negative); Nitrite Negative (Negative); Protein, Urine (Dipstick) 10 mg/dL (Neg-Trace); RBC/HPF 0-3 HPF (0-3); Squamous Epithelial 0-3 HPF (0-3); Urobilinogen Normal mg/dL (Less than 2); WBC/HPF Greater than 50 HPF (0-3); Yeast-Budding 1+ HPF (None Seen)
[2019-03-19] MEDS ORDERED: cefTRIAXone\\ROCEPHIN 2 GM VIAL ONE (13:08)
[2019-03-19] MEDS ORDERED: Bisacodyl 10 MG SUPP PR PRN (14:40)
[2019-03-19] MEDS ORDERED: Acetaminophen 325 MG TAB PO PRN (14:40)
[2019-03-19] MEDS ORDERED: Guaifenesin DM 100-10/5 ML UDCUP PO PRN (14:40)
[2019-03-19] MEDS ORDERED: Vancomycin HCl 1 GM in Sodium Chloride 0.9% 250 ML 300 ML IVPB SCH (14:45)
[2019-03-19 15:53] LABS: Lactic Acid 2.6 mmol/L (0.5-2.2)
[2019-03-19 16:46] VITALS: BMI 24.1
[2019-03-19] MEDS: Lorazepam 2 MG/ML VIAL SLOW IVP PRN (17:57)
[2019-03-19] MEDS: Polyethylene Glycol OPTH DROP 15 ML BOT EA EYE SCH ×2 (18:02→21:50)
[2019-03-19] MEDS: Dextrose 5% in Water 1,000 ML IV SCH (18:04)
[2019-03-19] MEDS: Mometasone/Formoterol 120 PUFF INHALER INH SCH (18:29)
--- NOTE | 2019-03-19 18:39 | HP ---
REASON FOR ADMISSION: Sepsis, syncope, urinary tract infection, acute kidney injury, mild hyperkalemia, and metabolic acidosis. HISTORY OF PRESENTING ILLNESS: Please note majority of this history is obtained by prior records, retirement records, and information obtained from daughter, who is here at bedside. The patient has a fairly advanced dementia and is not oriented. Per retirement records, the patient was eating her breakfast and started coughing and passed out. Currently, she is fully awake, but is not oriented. She had a temperature of 97.7 degrees at the retirement in [place]. Her daughter, Ms. Kinga Munguia confirms the same. The patient normally communicates, but makes sense only one out of three or four times. She needs help with feeding. The daughter usually feeds her in the afternoon. She is currently not in any distress. The patient is also wheelchair bound and has not ambulated in a long time now. PAST MEDICAL AND SURGICAL HISTORY: History of prior pneumonia; hypertension; prior history of tobacco abuse, which she has completely stopped; anxiety disorder; dementia; GERD; COPD; and chronic iron deficiency anemia. There is also mention of the patient having schizophrenia in the nursing records. MEDICATIONS: Current medications at the retirement; the patient is on: 1. Aspirin 81 mg p.o. daily. 2. Ferrous sulfate daily. 3. Allopurinol 100 mg daily. 4. Advair Diskus 250/50 mcg 2 puffs twice daily. 5. Multivitamin 1 tablet once daily. 6. Seroquel 25 mg twice daily. 7. Systane eye drops. 8. Zofran p.r.n. ALLERGIES: NO KNOWN DRUG ALLERGIES. PERSONAL HISTORY: The patient quit smoking years ago, exact date and year are not known to the daughter. Does not abuse alcohol or drugs. She is a resident of [facility], formerly [place]. FAMILY HISTORY: Per daughter, the patient's mother in her 80s, she has had history of diabetes. Her father in his 90s from natural causes. CODE STATUS: Full. This was confirmed with power of research attorney and daughter, Kinga Sweeney. Number to reach her is [phone]. REVIEW OF SYSTEMS: Cannot be obtained as the patient is not oriented. PHYSICAL EXAMINATION: GENERAL: The patient is a 78-year-old female, who is currently not in any acute distress. VITAL SIGNS: Blood pressure 136/102, pulse 100 per minute, respiratory rate 24 per minute, temperature 98.2 degrees Fahrenheit, saturating 99% on room air. NECK: Supple. No elevated JVD. HEENT: Eyes; extraocular muscles are intact. Pupils are reacting to light. Oral cavity; mucous membranes are dry. No exudates or congestion. CARDIOVASCULAR: S1 and S2 heard. Regular rhythm. RESPIRATORY: Air entry 1+ bilateral. Scattered rhonchi plus bilateral. No rales or wheezes. ABDOMEN: Soft. Bowel sounds heard. No tenderness, rigidity, or guarding. EXTREMITIES: No peripheral edema or calf tenderness. VASCULAR SYSTEM: Peripheral pulses 1+ bilateral. No ischemic ulcerations or gangrene. CENTRAL NERVOUS SYSTEM: No gross focal deficits noted. the patient is awake and alert, but is not oriented. PSYCHIATRIC: No obvious hallucinations or delusions, but the patient is not oriented, and accurate psychiatric examination is not possible at present. LABORATORY DATA: EKG done shows normal sinus rhythm at 95 beats per minute. There are nonspecific ST-T wave changes. White count of 16, H and H 11 and 39, platelet count 170, MCV 66 with 82% neutrophils. Potassium 5.2, serum bicarb 22, BUN 36, creatinine 1.6, serum glucose 175. Lactic acid 2.3, the second set is 2.6. Alkaline phosphatase 118. AST and ALT within normal limits. Troponin I is negative. Albumin is 4.3. UA shows evidence of UTI. Chest x-ray done shows no acute process. CLINICAL IMPRESSION AND PLAN: The patient will be admitted to medical floor for sepsis, urinary tract infection, acute kidney injury, metabolic acidosis, and moderate dehydration. She will be on ceftriaxone and vancomycin. Blood and urine cultures have been obtained in the ER. We will continue her on aspirin, ferrous sulfate, Dulera inhaler, multivitamin, and Seroquel per prior dosing. We will also gently hydrate her with D5 water at 100 mL per hour for a total of 2 L. We will continue to closely monitor her on medical floor. Job ID: [id number] [facility]
[2019-03-19] MEDS: Famotidine 20 MG TAB PO SCH (21:30)
[2019-03-19] MEDS: Senokot S 8.6-50 MG TAB PO SCH (21:40)
[2019-03-20] MEDS: Dextrose 5% in Water 1,000 ML IV SCH (04:26)
[2019-03-20] MEDS: Mometasone/Formoterol 120 PUFF INHALER INH SCH ×2 (06:28→19:03)
[2019-03-20 06:48] LABS: #Eosinphils 0.2 thou/uL (0.0-0.7); #Lymphocytes 1.6 thou/uL (1.20-3.40); #Monocytes 0.5 thou/uL (0.11-0.59); #Neutrophils 3.8 thou/uL (1.40-6.50); %Basophils 0.6 % (0.0-1.0); %Eosinophils 2.8 % (0.0-10.0); %Lymphocytes 26.7 % (21.0-51.0); %Monocytes 8.2 % (0.0-10.0); %Neutrophils 61.7 % (42.0-75.0); Hemoglobin 10.1 g/dL (12.0-16.0); Mean Corpuscular HGB CONC 30.7 g/dL (32.0-36.0); Mean Corpuscular Hemoglobin 20.7 pg (27.0-31.0); Mean Corpuscular Volume 67.4 fL (78.0-98.0); Mean Platelet Volume 8.7 fL (7.4-10.4); Platelet Count 149 thou/uL (130-400); RBC Distribution Width 20.5 % (11.5-14.5); Red Blood Cell (RBC) Count 4.87 mill/uL (4.20-5.40); White Blood Cell (WBC) Count 6.1 thou/uL (4.8-10.8)
[2019-03-20 07:08] LABS: Anion Gap 12 mmol/L (10-20); BUN (Urea Nitrogen) 25 mg/dL (9.8-20.1); Calc. Creatinine Clearance 37 mL/min (70-130); Calcium 8.2 mg/dL (7.8-10.44); Carbon Dioxide 20 mmol/L (23-31); Chloride 109 mmol/L (98-107); Estimated GFR-MDRD 50; Glucose 138 mg/dL (83-110); Potassium 4.4 mmol/L (3.5-5.1); Sodium 137 mmol/L (136-145)
[2019-03-20 07:42] LABS: Hypochromia MODERATE=16-30 cells (100X) (0-5/hpf); MDiff Complete? YES; Microcytosis MODERATE=15-30 cells (100X) (0-5/hpf); Ovalocytes SLIGHT = 2-5 cells (100X) (0-1/hpf); Platelet Morphology Comment Appears Adequate; Polychromasia SLIGHT = 2-3 cells (100X) (0-2/hpf)
[2019-03-20] MEDS ORDERED: FLU VACC TS2019-20(65YR UP)/PF 180 MCG/0.5 ML SYRINGE IM ONE (09:00)
[2019-03-20] MEDS ORDERED: Prevnar 13-Val Conj/PF 0.5 ML SYRINGE IM ONE (09:00)
[2019-03-20] MEDS: Multivitamin W/ Minerals 1 TAB PO SCH (09:27)
[2019-03-20] MEDS: Polyethylene Glycol OPTH DROP 15 ML BOT EA EYE SCH ×3 (09:27→20:03)
[2019-03-20] MEDS: Allopurinol 100 MG TAB PO SCH (09:27)
[2019-03-20] MEDS: Ferrous Sulfate 325 MG TAB PO SCH (09:27)
[2019-03-20] MEDS: Aspirin Chewable 81 MG TAB PO SCH (09:27)
[2019-03-20] MEDS: Senokot S 8.6-50 MG TAB PO SCH ×2 (09:27→20:03)
[2019-03-20] MEDS: Enoxaparin Sodium 40 MG/0.4 ML SYRINGE SC SCH (09:29)
--- NOTE | 2019-03-20 12:41 | PDOC.HOSPP ---
- Subjective Encounter Date: 03/20/19 Encounter Time: 08:45 Subjective: awake, not oriented not in distress is eating well, needs feeding - Objective Vital Signs & Weight: Vital Signs (12 hours) Temp Pulse Resp BP Pulse Ox 03/20/19 11:13 97.6 F 77 18 127/79 100 03/20/19 07:55 97.7 F 79 20 107/72 100 03/20/19 06:28 91 16 100 03/20/19 04:39 97.8 F 75 16 126/82 100 Weight Weight 140 lb 9.6 oz Result Diagrams: 03/20/19 06:19 03/20/19 06:19 Additional Labs: Accuchecks 03/20/19 03/20/19 03/19/19 11:14 04:23 20:59 POC Glucose 150 H 138 H 157 H Hospitalist ROS - Medication Medications: Active Medications Generic Name Dose Route Start Last Admin Trade Name Freq PRN Reason Stop Dose Admin Albuterol/Ipratropium 3 ml 03/19/19 14:40 03/20/19 04:39 Duoneb NEB 3 ml [id number] PRN Administration SOB &/or Wheezing Allopurinol 100 mg 03/20/19 09:00 03/20/19 09:27 Zyloprim PO 100 mg DAILY KARI Administration Aspirin 81 mg 03/20/19 09:00 03/20/19 09:27 Aspirin Chewable PO 81 mg DAILY KARI Administration Enoxaparin Sodium 40 mg 03/20/19 09:00 03/20/19 09:29 Lovenox SC 40 mg 0900 KARI Administration Famotidine 20 mg 03/19/19 21:00 03/19/19 21:30 Pepcid PO Not Given QPM KARI Ferrous Sulfate 325 mg 03/20/19 09:00 03/20/19 09:27 Feosol PO 325 mg DAILY KARI Administration Dextrose/Water 1,000 mls @ 100 mls/hr 03/19/19 17:45 03/20/19 04:26 D5w IV 03/20/19 13:44 1,000 mls .Q10H KARI Administration Iron/Minerals/Multivitamins 1 tab 03/20/19 09:00 03/20/19 09:27 Theragran M PO 1 tab DAILY KARI Administration Lorazepam 0.5 mg 03/19/19 14:40 03/19/19 17:57 Ativan SLOW IVP 0.5 mg Q6H PRN Administration Anxiety/Agitation Mometasone Furoate/Formoterol Fumar 2 puff 03/19/19 18:30 03/20/19 06:28 Dulera 100 Mcg/5 Mcg Inhaler INH 2 puff BID-RT KARI Administration Propylene Glycol 1 drop 03/19/19 15:00 03/20/19 09:27 Systane Opth Drop 15ml Bot EA EYE 1 drop TID KARI Administration Quetiapine Fumarate 25 mg 03/19/19 21:00 03/20/19 09:27 Seroquel PO 25 mg BID KARI Administration Senna/Docusate Sodium 2 tab 03/19/19 21:00 03/20/19 09:27 Senokot S PO 2 tab BID KARI Administration - Exam General Appearance: awake alert Eye: PERRL, anicteric sclera ENT: no oropharyngeal lesions, moist mucosa Neck: supple, no JVD Heart: RRR, no murmur Respiratory: no wheezes, no rales Gastrointestinal: soft, non-tender, non-distended, normal bowel sounds Extremities: no cyanosis, no edema Neurological: cranial nerve grossly intact, no focal deficits Hosp A/P (1) Sepsis Code(s): A41.9 - SEPSIS, UNSPECIFIED ORGANISM Status: Acute Plan: proteus mirabilis (2) UTI (urinary tract infection) Status: Acute Qualifiers: Urinary tract infection type: acute cystitis Hematuria presence: without hematuria Qualified Code(s): N30.00 - Acute cystitis without hematuria (3) EDNA (acute kidney injury) Code(s): N17.9 - ACUTE KIDNEY FAILURE, UNSPECIFIED Status: Acute (4) COPD (chronic obstructive pulmonary disease) Status: Chronic Qualifiers: COPD type: chronic bronchitis (5) Chronic kidney disease, stage 3 Code(s): N18.3 - CHRONIC KIDNEY DISEASE, STAGE 3 (MODERATE) Status: Chronic (6) DM2 (diabetes mellitus, type 2) Status: Chronic Qualifiers: Diabetes mellitus recycling program manager insulin use: without recycling program manager use (7) GERD (gastroesophageal reflux disease) Code(s): K21.9 - GASTRO-ESOPHAGEAL REFLUX DISEASE WITHOUT ESOPHAGITIS Status: Chronic Qualifiers: Esophagitis presence: esophagitis presence not specified Qualified Code(s) : K21.9 - Gastro-esophageal reflux disease without esophagitis (8) Dementia Code(s): F03.90 - UNSPECIFIED DEMENTIA WITHOUT BEHAVIORAL DISTURBANCE Status: Chronic Qualifiers: Dementia type: Alzheimer's disease - Plan is on ceftriaxone await full culture results, blood cs x2 is -ve dc iv fluids after current one encourage po intake, needs feeding no agitation overnight per staff continue asp, nebs, dulera and seroquel hemostable renal function almost at baseline
[2019-03-20] MEDS: cefTRIAXone\\ROCEPHIN 2 GM in Sodium Chloride 0.9% 100 ML IVPB SCH (13:17)
[2019-03-20] MEDS: Famotidine 20 MG TAB PO SCH (20:03)
[2019-03-21] MEDS: Mometasone/Formoterol 120 PUFF INHALER INH SCH ×2 (06:52→18:27)
[2019-03-21] MEDS: Senokot S 8.6-50 MG TAB PO SCH ×2 (09:46→19:28)
[2019-03-21] MEDS: Ferrous Sulfate 325 MG TAB PO SCH (09:47)
[2019-03-21] MEDS: Aspirin Chewable 81 MG TAB PO SCH (09:48)
[2019-03-21] MEDS: Allopurinol 100 MG TAB PO SCH (09:48)
[2019-03-21] MEDS: Multivitamin W/ Minerals 1 TAB PO SCH (09:48)
[2019-03-21] MEDS: Polyethylene Glycol OPTH DROP 15 ML BOT EA EYE SCH ×3 (09:49→19:28)
[2019-03-21] MEDS: Enoxaparin Sodium 40 MG/0.4 ML SYRINGE SC SCH (09:49)
[2019-03-21] MEDS: cefTRIAXone\\ROCEPHIN 2 GM in Sodium Chloride 0.9% 100 ML IVPB SCH (13:13)
--- NOTE | 2019-03-21 13:16 | PDOC.HOSPP ---
- Subjective Encounter Date: 03/21/19 Encounter Time: 08:15 Subjective: awake, not in distress, not oriented - Objective Vital Signs & Weight: Vital Signs (12 hours) Temp Pulse Resp BP Pulse Ox 03/21/19 08:00 98 03/21/19 07:43 97.6 F 81 20 132/85 98 03/21/19 06:52 78 16 100 Weight Admit Weight 140 lb 9.6 oz Weight 140 lb 9.6 oz I&O: 03/20/19 03/21/19 03/22/19 06:59 06:59 06:59 Intake Total 2120 Output Total 250 Balance 1870 Result Diagrams: 03/20/19 06:19 03/20/19 06:19 Additional Labs: Accuchecks 03/21/19 03/20/19 03/20/19 04:08 20:00 16:16 POC Glucose 106 148 H 104 Hospitalist ROS - Medication Medications: Active Medications Generic Name Dose Route Start Last Admin Trade Name Freq PRN Reason Stop Dose Admin Albuterol/Ipratropium 3 ml 03/19/19 14:40 03/20/19 04:39 Duoneb NEB 3 ml [id number] PRN Administration SOB &/or Wheezing Allopurinol 100 mg 03/20/19 09:00 03/21/19 09:48 Zyloprim PO 100 mg DAILY KARI Administration Aspirin 81 mg 03/20/19 09:00 03/21/19 09:48 Aspirin Chewable PO 81 mg DAILY KARI Administration Enoxaparin Sodium 40 mg 03/20/19 09:00 03/21/19 09:49 Lovenox SC 40 mg 0900 KARI Administration Famotidine 20 mg 03/19/19 21:00 03/20/19 20:03 Pepcid PO 20 mg QPM KARI Administration Ferrous Sulfate 325 mg 03/20/19 09:00 03/21/19 09:47 Feosol PO 325 mg DAILY KARI Administration Ceftriaxone Sodium 2 gm/ 100 mls @ 200 mls/hr 03/20/19 13:00 03/20/19 13:17 Sodium Chloride IVPB 100 mls 1300 KARI Administration Iron/Minerals/Multivitamins 1 tab 03/20/19 09:00 03/21/19 09:48 Theragran M PO 1 tab DAILY KARI Administration Lorazepam 0.5 mg 03/19/19 14:40 03/19/19 17:57 Ativan SLOW IVP 0.5 mg Q6H PRN Administration Anxiety/Agitation Mometasone Furoate/Formoterol Fumar 2 puff 03/19/19 18:30 03/21/19 06:52 Dulera 100 Mcg/5 Mcg Inhaler INH 2 puff BID-RT KARI Administration Propylene Glycol 1 drop 03/19/19 15:00 03/21/19 09:49 Systane Opth Drop 15ml Bot EA EYE 1 drop TID KARI Administration Quetiapine Fumarate 25 mg 03/19/19 21:00 03/21/19 09:48 Seroquel PO 25 mg BID KARI Administration Senna/Docusate Sodium 2 tab 03/19/19 21:00 03/21/19 09:46 Senokot S PO Not Given BID KARI - Exam General Appearance: NAD, awake alert Eye: PERRL, anicteric sclera ENT: no oropharyngeal lesions, moist mucosa Neck: supple, no JVD Heart: RRR, no murmur Respiratory: no wheezes, no rales Gastrointestinal: soft, non-tender, non-distended, normal bowel sounds Neurological: cranial nerve grossly intact, no focal deficits Hosp A/P (1) Sepsis Code(s): A41.9 - SEPSIS, UNSPECIFIED ORGANISM Status: Acute (2) UTI (urinary tract infection) Status: Acute Qualifiers: Urinary tract infection type: acute cystitis Hematuria presence: without hematuria Qualified Code(s): N30.00 - Acute cystitis without hematuria (3) EDNA (acute kidney injury) Code(s): N17.9 - ACUTE KIDNEY FAILURE, UNSPECIFIED Status: Acute (4) COPD (chronic obstructive pulmonary disease) Status: Chronic Qualifiers: COPD type: chronic bronchitis (5) Chronic kidney disease, stage 3 Code(s): N18.3 - CHRONIC KIDNEY DISEASE, STAGE 3 (MODERATE) Status: Chronic (6) DM2 (diabetes mellitus, type 2) Status: Chronic Qualifiers: Diabetes mellitus longterm insulin use: without longterm use (7) GERD (gastroesophageal reflux disease) Code(s): K21.9 - GASTRO-ESOPHAGEAL REFLUX DISEASE WITHOUT ESOPHAGITIS Status: Chronic Qualifiers: Esophagitis presence: esophagitis presence not specified Qualified Code(s) : K21.9 - Gastro-esophageal reflux disease without esophagitis (8) Dementia Code(s): F03.90 - UNSPECIFIED DEMENTIA WITHOUT BEHAVIORAL DISTURBANCE Status: Chronic Qualifiers: Dementia type: Alzheimer's disease - Plan is on ceftriaxone, will switch to vantin on dc urine culture grew proteus mirabilis, blood cs x2 is -ve renal funciton stable encourage po intake, needs feeding no agitation overnight per staff continue asp, nebs, dulera and seroquel hemostable dc plan in am to snf
[2019-03-21] MEDS: Famotidine 20 MG TAB PO SCH (19:34)
[2019-03-21] MEDS: Lorazepam 2 MG/ML VIAL SLOW IVP PRN (19:35)
[2019-03-22] MEDS: Mometasone/Formoterol 120 PUFF INHALER INH SCH (06:28)
[2019-03-22] MEDS: Multivitamin W/ Minerals 1 TAB PO SCH (08:58)
[2019-03-22] MEDS: Aspirin Chewable 81 MG TAB PO SCH (08:58)
[2019-03-22] MEDS: Allopurinol 100 MG TAB PO SCH (08:58)
[2019-03-22] MEDS: Polyethylene Glycol OPTH DROP 15 ML BOT EA EYE SCH ×2 (08:58→15:25)
[2019-03-22] MEDS: Senokot S 8.6-50 MG TAB PO SCH (08:58)
[2019-03-22] MEDS: Ferrous Sulfate 325 MG TAB PO SCH (08:58)
[2019-03-22] MEDS: Enoxaparin Sodium 40 MG/0.4 ML SYRINGE SC SCH (08:59)
[2019-03-22] MEDS: cefTRIAXone\\ROCEPHIN 2 GM in Sodium Chloride 0.9% 100 ML IVPB SCH (13:21)
[2019-03-22 15:53] VITALS: BP 119/79; TEMP 98.8
--- NOTE | 2019-03-24 11:55 | DIS ---
DATE OF ADMISSION: 03/19/2019 DATE OF DISCHARGE: 03/22/2019 DISCHARGE DISPOSITION: [facility]. PRIMARY DISCHARGE DIAGNOSIS: Sepsis, urinary tract infection, acute kidney injury, all resolving. SECONDARY DISCHARGE DIAGNOSES: Chronic obstructive pulmonary disease, chronic kidney disease stage 3, diabetes mellitus type 2, gastroesophageal reflux disease, dementia. PROCEDURES DONE DURING HOSPITALIZATION: Urine culture grew Proteus mirabilis sensitive to cephalosporins. Chest x-ray done showed no acute cardiopulmonary abnormalities. Blood cultures x2, no growth. Influenza A and B antigens were negative. Had a white count of 16 on the day of admission with 82% neutrophils. White count dropped down to 6.1 on the . Discharge BUN and creatinine are 25 and 1.2. Admitting BUN and creatinine were 36 and 1.6. DISCHARGE MEDICATIONS: 1. Vantin 200 mg p.o. twice daily for 1 week. 2. Seroquel 25 mg twice daily. 3. Systane eye drops one drop to each eye three times daily. 4. Multivitamin one tablet once daily. 5. Advair Diskus 100/50 mcg inhaler twice daily. 6. Ferrous sulfate 325 mg p.o. daily. 7. Aspirin 81 mg p.o. daily. 8. Allopurinol 100 mg p.o. daily. ALLERGIES: NO KNOWN DRUG ALLERGIES. DISCHARGE PLAN: The patient to follow up with Dr. Lira, her primary care physician at the [place] [facility] in 1 week. BRIEF COURSE DURING HOSPITALIZATION: The patient initially was sent from [facility] after she started coughing while eating breakfast and passed out. The patient was found to be septic with urinary tract infection and acute kidney injury on arrival here. She was placed on broad-spectrum IV antibiotics. She has responded well to above measures. Her urine culture grew Proteus mirabilis sensitive to cephalosporins, but resistant to quinolones and Macrobid. The patient has fairly advanced dementia and is not oriented at baseline. A total of 35 minutes was spent on discharge plan. Please note, I have seen and examined the patient on the day of discharge. Prior to discharge, she is eating well. She needs help with feeding. She will also need ongoing speech therapy at the [place] [facility]. Job ID: [id number] [facility]
== END 2019-03-22 16:30 | DRG 872 ==
LOC: ERS 10:20 → T4-B 13:58
PROVIDERS: ADMIT Internal Medicine; ATTEND Internal Medicine
DX: A41.59 Other Gram-negative sepsis (principal); N17.9 Acute kidney failure, unspecified; E87.2 Acidosis; N30.00 Acute cystitis without hematuria; Z16.23 Resistance to quinolones and fluoroquinolones; K21.9 Gastro-esophageal reflux disease without esophagitis; M19.90 Unspecified osteoarthritis, unspecified site; G30.9 Alzheimer's disease, unspecified; F02.80 Dementia in other diseases classified elsewhere, unspecified severity, without behavioral disturbance, psychotic disturbance, mood disturbance, and anxiety; E87.5 Hyperkalemia; J44.9 Chronic obstructive pulmonary disease, unspecified; D50.9 Iron deficiency anemia, unspecified; E86.0 Dehydration; I12.9 Hypertensive chronic kidney disease with stage 1 through stage 4 chronic kidney disease, or unspecified chronic kidney disease; E11.22 Type 2 diabetes mellitus with diabetic chronic kidney disease; N18.3 Chronic kidney disease, stage 3 (moderate); F20.9 Schizophrenia, unspecified; B96.4 Proteus (mirabilis) (morganii) as the cause of diseases classified elsewhere; Z79.82 Long term (current) use of aspirin; Z79.01 Long term (current) use of anticoagulants; Z79.899 Other long term (current) drug therapy; Z79.51 Long term (current) use of inhaled steroids; Z87.891 Personal history of nicotine dependence
CPT/HCPCS: 36415; 36416; 51701; 71045; 80048; 80053; 81003; 81015; 83605; 84484; 85025; 87040; 87077; 87086; 87186; 87804; 93005; 94640; 94664; 96361; 96365; 96367; A4353; J0696; J1650; J2060; J3370; J3490; J7620

== ENCOUNTER 2019-06-26 13:29 | Observation (INO) | payer MEDICARE, MEDICAID ==
[2019-06-26 14:56] LABS: #Eosinphils 0.3 thou/uL (0.0-0.7); #Monocytes 1.3 thou/uL (0.11-0.59); #Neutrophils 6.6 thou/uL (1.40-6.50); %Basophils 0.3 % (0.0-1.0); %Lymphocytes 19.4 % (21.0-51.0); %Monocytes 12.4 % (0.0-10.0); %Neutrophils 64.9 % (42.0-75.0); Hemoglobin 12.4 g/dL (12.0-16.0); Mean Corpuscular HGB CONC 29.4 g/dL (32.0-36.0); Mean Corpuscular Hemoglobin 19.7 pg (27.0-31.0); Mean Corpuscular Volume 67.2 fL (78.0-98.0); Mean Platelet Volume 9.7 fL (7.4-10.4); Platelet Count 155 thou/uL (130-400); RBC Distribution Width 19.3 % (11.5-14.5); Red Blood Cell (RBC) Count 6.31 mill/uL (4.20-5.40); White Blood Cell (WBC) Count 10.1 thou/uL (4.8-10.8)
[2019-06-26 15:11] LABS: Anisocytosis MODERATE=16-30 cells (100X) (0-5/hpf); Hypochromia SLIGHT = 6-15 cells (100X) (0-5/hpf); Large Platelets SLIGHT; MDiff Complete? YES; Microcytosis SLIGHT = 6-15 cells (100X) (0-5/hpf); Ovalocytes SLIGHT = 2-5 cells (100X) (0-1/hpf); Platelet Morphology Comment Appears Adequate; Poikilocytosis SLIGHT = 6-15 cells (100X) (0-5/hpf); Polychromasia SLIGHT = 2-3 cells (100X) (0-2/hpf); Schistocytes SLIGHT = 2-5 cells (100X) (0-1/hpf); Target Cells SLIGHT = 2-5 cells (100X) (0-1/hpf); Tear Drops SLIGHT = 2-5 cells (100X) (0-1/hpf)
--- NOTE | 2019-06-26 15:34 | CT ---
CT BRAIN NONCONTRAST: 06/26/19 HISTORY: 79-year-old female with Alzheimer's disease presents with acute altered mental status. COMPARISON: 02/12/19. FINDINGS: Image quality is low because of suboptimal patient positioning (patient is unable to cooperate). Ther e is no midline shift or any other mass effect. There is no evidence of acute intracranial hemorrhag e, large cortical infarct, obstructive hydrocephalus, or extraaxial fluid collection. The calvarium is intact. There is diffuse parenchymal volume loss. There are low attenuation areas in the white m atter. These are nonspecific, but in a patient of this age, they are probably chronic ischemic white matter changes due to microvascular atherosclerosis. Small old lacunar infarction in the left corpus striatum is again noted. Again noted is the partial opacifications of bilateral mastoid air cells. N o significant interval change overall. Mucosal thickening throughout bilateral ethmoid air cells. IMPRESSION: 1) No acute intracranial findings. 2) Involutional changes and chronic ischemic white matter changes. 3) Tiny old lacunar infarction in the left basal ganglia/internal capsule. jose maria POS: DEBORAH
[2019-06-26 15:36] LABS: ALT (SGPT) 21 U/L (8-55); AST (SGOT) 26 U/L (5-34); Acetaminophen Less than 6.0 mcg/mL (10.0-30.0); Alcohol Less than 10 mg/dL (Less than 10); Alkaline Phosphatase 89 U/L (40-110); Anion Gap 16 mmol/L (10-20); BUN (Urea Nitrogen) 29 mg/dL (9.8-20.1); Bilirubin, Total 0.2 mg/dL (0.2-1.2); Calc. Creatinine Clearance 0 mL/min (70-130); Calcium 9.4 mg/dL (7.8-10.44); Carbon Dioxide 22 mmol/L (23-31); Chloride 105 mmol/L (98-107); Estimated GFR-MDRD 37; Globulin 3.6 g/dL (2.4-3.5); Glucose 135 mg/dL (83-110); Potassium 4.4 mmol/L (3.5-5.1); Protein, Total 7.6 g/dL (6.0-8.3); Salicylate Less than 8.0 mg/dL (15.0-30.0); Sodium 139 mmol/L (136-145)
--- NOTE | 2019-06-26 15:41 | RAD ---
SINGLE VIEW OF THE CHEST: COMPARISON: 03/19/2019. HISTORY: Cough and dyspnea. FINDINGS: Single view of the chest shows a normal sized cardiomediastinal silhouette. There is no evidence of c onsolidation, mass, or pleural effusion. The bones are unremarkable. IMPRESSION: No evidence of acute cardiopulmonary disease. POS: CET
[2019-06-26 16:02] LABS: Bilirubin Negative (Negative); Blood, Urine Negative (Negative); Clarity Clear (Clear); Glucose, Urine (Dipstick) Normal (Negative); Leukocyte Negative Leu/uL (Negative); Nitrite Negative (Negative); Protein, Urine (Dipstick) Negative (Neg-Trace); Urobilinogen Normal mg/dL (Less than 2)
[2019-06-26 16:12] LABS: Amphetamine Not Detected (NotDetected); Barbiturates Screen Not Detected (NotDetected); Benzodiazepine Screen Not Detected (NotDetected); Cocaine Metabolite Screen Not Detected (NotDetected); Medtox Control Line Valid? VALID (VALID); Medtox Reader # READER 1; Methadone Not Detected (NotDetected); Methamphetamine Not Detected (NotDetected); Opiate Screen Not Detected (NotDetected); Oxycodone Screen Not Detected (NotDetected); Phencyclidine (PCP) Not Detected (NotDetected); THC/Cannabinoid Screen Not Detected (NotDetected); Tricyclic Screen Detected (NotDetected)
[2019-06-26 19:14] LABS: Troponin I 0.026 ng/mL (< 0.028)
[2019-06-26 21:28] LABS: Troponin I 0.013 ng/mL (< 0.028)
[2019-06-26 23:41] VITALS: BMI 27.9
[2019-06-27] MEDS ORDERED: Sodium Chloride 0.9% 1,000 ML IV SCH (04:30)
[2019-06-27] MEDS: Sodium Chloride 0.9% 1,000 ML IV SCH ×2 (07:30→17:14)
[2019-06-27] MEDS ORDERED: Acetaminophen 325 MG TAB PO PRN (07:38)
[2019-06-27] MEDS ORDERED: Ondansetron PF 4 MG/2 ML Vial IVP PRN (07:38)
[2019-06-27] MEDS ORDERED: Dextrose 5% in Water 1,000 ML IV PRN (07:57)
[2019-06-27] MEDS ORDERED: Dextrose 50% Abboject 50 ML SYRINGE SLOW IVP PRN (07:57)
[2019-06-27] MEDS ORDERED: HumaLOG 300 UNITS/3 ML VIAL SC PRN (07:57)
[2019-06-27] MEDS ORDERED: PROPYLENE GLYCOL EA EYE SCH (09:00)
[2019-06-27] MEDS ORDERED: Non-Formulary Item 1 EACH (Ferrous Sulfate [Iron] 325 MG) PO SCH (09:00)
[2019-06-27] MEDS ORDERED: Non-Formulary Item 1 EACH (Fluticasone/Salmeterol [Advair Diskus 100/50] 1 INH) IH SCH (09:00)
[2019-06-27] MEDS ORDERED: [UNRECOGNIZED DRUG - OTHER] EA EYE SCH (09:00)
[2019-06-27] MEDS ORDERED: PEG EA EYE SCH (09:00)
[2019-06-27] MEDS: Aspirin Chewable 81 MG TAB PO SCH (09:14)
[2019-06-27] MEDS: Ferrous Sulfate 325 MG TAB PO SCH (09:14)
[2019-06-27] MEDS: Allopurinol 100 MG TAB PO SCH (09:14)
[2019-06-27] MEDS: Multivitamin W/ Minerals 1 TAB PO SCH (09:14)
[2019-06-27] MEDS: Artificial Tear Sol 15 ML BOT EA EYE SCH ×3 (09:30→20:12)
--- NOTE | 2019-06-27 10:17 | HP ---
CHIEF COMPLAINT: Altered mental status. HISTORY OF PRESENT ILLNESS: The patient is an 79-year-old female from the [facility], sent to the emergency room for evaluation of her mental status. Apparently, the family noticed that her mental condition is not at her baseline and requested further evaluation. Also, she was sent to evaluate her left wrist swelling, and the patient is getting admitted for further evaluation of her condition. There was no any fever or chills. According to the previous admissions, she was admitted to [facility] with UTI and sepsis in March 2019. PAST MEDICAL HISTORY: 1. COPD. 2. Chronic kidney disease, stage 3. 3. Diabetes mellitus, type 2. 4. Gastroesophageal reflux disease. 5. Alzheimer dementia. 6. Schizophrenia. 7. Prior history of sepsis secondary to UTI. 8. History of CVA. 9. Hypertension. 10. History of dysarthria. 11. Nonambulatory status. 12. Gout. 13. History of major depression. PAST SURGICAL HISTORY: Past surgical history despite of H and P is lacking good information. As far as we know, she did not have any surgery. SOCIAL HISTORY: [facility]. She does not have any history of alcohol intake, cigarette smoking, or illicit drug use. ALLERGIES: NONE. CURRENT MEDICATIONS: 1. Aspirin 81 mg once a day. 2. Iron 325 mg once a day. 3. Allopurinol 100 mg once a day. 4. Seroquel 25 mg twice a day. 5. Multivitamin 1 tablet daily. 6. Advair Diskus 1 puff twice a day. 7. Systane Ultra 1 eye drop 3 times a day. 8. Zofran ODT 2 tablets every 4 hours p.r.n. FAMILY HISTORY: Unobtainable secondary to the patient's mental status. REVIEW OF SYSTEMS: Unobtainable secondary to above-mentioned problem. PHYSICAL EXAMINATION: GENERAL: She is awake. She tries to be interactive, but her speech is slurred and mumbling. It is very difficult to understand what she is trying to say. We know that she has a history of dysarthria in the past. VITAL SIGNS: Her blood pressure is 115/91, pulse is 80, temperature is 97.6, respiratory rate is 16, O2 saturation is 95% on room air. She tries to follow my commands on and off. HEENT: Her sclerae are nonicteric. Conjunctivae are pinkish. Oral mucosa is slightly dry. NECK: Supple. LUNGS: Clear. HEART: S1 and S2. Regular. No S3. No S4. ABDOMEN: Soft, nontender, and nondistended. Bowel sounds are present. EXTREMITIES: No clubbing, cyanosis, or edema. The proximal part of the left forearm shows subcutaneous most likely cyst, size 1 inch x 1 inch, nontender without any erythema of the skin in this area. NEUROLOGIC: As I mentioned above, she is awake. Occasionally, she tries to follow my commands. Her speech is slurred. It looks like she is able to move her all 4 extremities, but again, it is difficult to assess her properly secondary to inability to communicate with this patient. I do not really see marked swelling of her left wrist. LABORATORY DATA: Showed white count of 10.1, hemoglobin of 12.4, hematocrit 42.4, MCV 67.2, RDW 19.3, platelet count 155. Sodium of 139, potassium 4.4, chloride 105, CO2 of 22, BUN 29, creatinine 1.63, glucose 135. Troponin I of 0.016, 0.026, and 0.013. Globulin 3.6. The rest of chemistry is within normal limits. Urinalysis is within normal limits. Toxicology: Urine screen; salicylates less than 8, acetaminophen less than 6, tricyclics detected. Plasma alcohol less than 10, and the rest of the drug screen is negative. Chest x-ray, no acute findings. CT of the brain showed old lacunar infarct in the left basal ganglia internal capsule and chronic changes of ischemic nature of the white matter. IMPRESSION: 1. Altered mental status of unclear etiology at this point. We are going to contact the family and the [facility] staff to obtain more information about this patient. She seems to be comfortable, and she is not in any distress at this point. We will keep her on IV fluids, which was started in the emergency room at 75 mL/hour of normal saline. We will check ammonia level, and we will see what else needs to be done to continue diagnostic workup. 2. Left wrist swelling per notes from emergency room physician with negative findings during my visit. 3. Diabetes mellitus, type 2. 4. Alzheimer dementia. 5. History of cerebrovascular accident. 6. Chronic obstructive pulmonary disease. 7. Hypertension. 8. Gout. 9. Gastroesophageal reflux disease. 10. Osteoarthritis. 11. Chronic kidney disease, stage 3. PLAN: Admission for observation. Condition is fair. Continue full code status. We will [facility] this with the [facility]. Continue IV fluids, normal saline at 75 mL/hour. Continue home medications if she is able to swallow safely. Her urinalysis did not show any changes, and it does not look like there is any kind of infection going on in her body. We will keep her on smaller dose of Lovenox since she has some kidney problem, 30 mg subcutaneously every 24 hours starting tomorrow. We will use SCDs for DVT prophylaxis. Job ID: [id number]
[2019-06-27] MEDS: Mometasone/Formoterol 120 PUFF INHALER INH SCH (19:14)
[2019-06-28 04:17] LABS: #Basophils 0.1 thou/uL (0.0-0.2); #Eosinphils 0.2 thou/uL (0.0-0.7); #Lymphocytes 1.6 thou/uL (1.20-3.40); #Monocytes 0.5 thou/uL (0.11-0.59); #Neutrophils 3.6 thou/uL (1.40-6.50); %Basophils 1.2 % (0.0-1.0); %Eosinophils 3.8 % (0.0-10.0); %Lymphocytes 26.5 % (21.0-51.0); %Monocytes 8.6 % (0.0-10.0); Hemoglobin 10.7 g/dL (12.0-16.0); Mean Corpuscular HGB CONC 29.8 g/dL (32.0-36.0); Mean Corpuscular Hemoglobin 19.9 pg (27.0-31.0); Mean Corpuscular Volume 66.9 fL (78.0-98.0); Platelet Count 195 thou/uL (130-400); RBC Distribution Width 18.7 % (11.5-14.5); Red Blood Cell (RBC) Count 5.36 mill/uL (4.20-5.40)
[2019-06-28 04:37] LABS: Anion Gap 11 mmol/L (10-20); BUN (Urea Nitrogen) 27 mg/dL (9.8-20.1); Calc. Creatinine Clearance 38 mL/min (70-130); Calcium 8.7 mg/dL (7.8-10.44); Carbon Dioxide 26 mmol/L (23-31); Chloride 112 mmol/L (98-107); Estimated GFR-MDRD 44; Glucose 112 mg/dL (83-110); Potassium 4.7 mmol/L (3.5-5.1); Sodium 144 mmol/L (136-145)
[2019-06-28] MEDS: Sodium Chloride 0.9% 1,000 ML IV SCH (06:32)
[2019-06-28] MEDS: Mometasone/Formoterol 120 PUFF INHALER INH SCH ×2 (06:39→19:44)
[2019-06-28] MEDS ORDERED: Enoxaparin Sodium 30 MG/0.3 ML SYRINGE SC SCH (09:00)
[2019-06-28] MEDS: Aspirin Chewable 81 MG TAB PO SCH (09:12)
[2019-06-28] MEDS: Multivitamin W/ Minerals 1 TAB PO SCH (09:12)
[2019-06-28] MEDS: Ferrous Sulfate 325 MG TAB PO SCH (09:12)
[2019-06-28] MEDS: Artificial Tear Sol 15 ML BOT EA EYE SCH ×2 (09:12→16:31)
[2019-06-28] MEDS: Allopurinol 100 MG TAB PO SCH (09:12)
[2019-06-28 12:57] VITALS: BP 147/73
[2019-06-28 16:10] VITALS: TEMP 98.2
--- NOTE | 2019-06-29 01:06 | DIS ---
DATE OF ADMISSION: 06/26/2019 DATE OF DISCHARGE: 06/28/2019 FINAL DIAGNOSES AT THE TIME OF DISCHARGE: 1. Altered mental status, resolved, most likely related to dehydration. 2. Dehydration. 3. Acute on chronic renal insufficiency, improved with IV fluids. 4. Diabetes mellitus type 2. 5. Alzheimer's dementia. 6. History of CVA. 7. Chronic obstructive pulmonary disease. 8. Hypertension. 9. Gout. 10. Gastroesophageal reflux disease. 11. Osteoarthritis. HOSPITAL COURSE: The patient is an 79-year-old female, from the [facility], was sent to the emergency room for evaluation of her change in her mental status. Apparently, her mental function was changed. Also, there was some question about left wrist swelling. Apparently, she was in our hospital, treated for UTI and sepsis on March 2019. During emergency room evaluation, her white count was 10.1, hemoglobin 12.4, hematocrit 42.4, platelet count was 155. Electrolytes were within normal limits. Creatinine was 1.63, BUN 29. Troponin I 0.016, 0.026, and 0.013. The rest of chemistry was within normal limits. Urinalysis was within normal limits. Toxicology screen was negative. Chest x-ray did not show any acute abnormalities. CT of the brain showed old lacunar infarct in the left basal ganglia of the internal capsule and chronic changes of ischemic nature of the white matter. The patient got admitted to the hospital. She was placed on normal saline at 75 mL/hour. It was felt that she was dehydrated. She improved. She went back to her baseline according to the family who visited her today. Our additional diagnostic workup showed that her ammonia level was 24 and uric acid was mildly elevated at 6.5. Her creatinine improved with IV fluids to 1.39 from 1.63. She is able to tolerate her meal and she is going back to the [facility]. Her blood pressure is 147/73, pulse is 84, temperature is 97, O2 saturation is 100%, respirations are 12. She was seen and examined before she is discharged. She is discharged on ADA diet. MEDICATIONS AT THE TIME OF DISCHARGE: Quetiapine 25 mg twice a day, which is Seroquel; multivitamin one a day; Advair Diskus 100/50 one inhalation twice a day; ferrous sulfate 325 mg daily; Vantin 200 mg twice a day; aspirin 81 mg once a day; allopurinol 100 mg daily. Job ID: [id number]
== END 2019-06-28 19:50 ==
LOC: ERS 13:29 → ONC 20:31
PROVIDERS: ADMIT Emergency Medicine; ATTEND Emergency Medicine
DX: R41.82 Altered mental status, unspecified (principal); E86.0 Dehydration; I12.9 Hypertensive chronic kidney disease with stage 1 through stage 4 chronic kidney disease, or unspecified chronic kidney disease; E11.22 Type 2 diabetes mellitus with diabetic chronic kidney disease; N18.3 Chronic kidney disease, stage 3 (moderate); N17.9 Acute kidney failure, unspecified; G30.9 Alzheimer's disease, unspecified; F02.80 Dementia in other diseases classified elsewhere, unspecified severity, without behavioral disturbance, psychotic disturbance, mood disturbance, and anxiety; K21.9 Gastro-esophageal reflux disease without esophagitis; F20.9 Schizophrenia, unspecified; M10.9 Gout, unspecified; F32.9 Major depressive disorder, single episode, unspecified; M19.90 Unspecified osteoarthritis, unspecified site; J44.9 Chronic obstructive pulmonary disease, unspecified; M25.432 Effusion, left wrist; Z86.73 Personal history of transient ischemic attack (TIA), and cerebral infarction without residual deficits; Z79.82 Long term (current) use of aspirin; Z79.899 Other long term (current) drug therapy
CPT/HCPCS: 51701; 70450; 71045; 80048; 80053; 80306; 80307; 81003; 82140; 82962 ×2; 83690; 83880; 84484 ×2; 84550; 85025 ×2; 87040; 87086; 93005; 94640; 96360; 96361 ×2; 96372; 99285; G0378 ×4; 36415; 36416; A4353; J1650

== ENCOUNTER 2019-09-06 19:00 | Inpatient (IN) | payer MEDICARE, MEDICAID, OTHER ==
[2019-09-06] MEDS ORDERED: Azithromycin 500 MG VIAL ONE (19:17)
[2019-09-06] MEDS ORDERED: cefTRIAXone\\ROCEPHIN 1 GM VIAL ONE (19:17)
[2019-09-06 20:16] LABS: Hemoglobin 13.1 g/dL (12.0-16.0); Mean Corpuscular HGB CONC 29.8 g/dL (32.0-36.0); Mean Corpuscular Hemoglobin 20.3 pg (27.0-31.0); Mean Corpuscular Volume 68.3 fL (78.0-98.0); Mean Platelet Volume 10.6 fL (7.4-10.4); Platelet Count 292 thou/uL (130-400); RBC Distribution Width 19.2 % (11.5-14.5); Red Blood Cell (RBC) Count 6.46 mill/uL (4.20-5.40); White Blood Cell (WBC) Count 15.7 thou/uL (4.8-10.8)
--- NOTE | 2019-09-06 20:28 | RAD ---
PORTABLE CHEST: 09/06/19 HISTORY: Cough and wheezing. COMPARISON: 06/26/19 exam. Heart size is within normal limits. There are atherosclerotic changes of the aorta. There is some par enchymal changes in the left base which appear to represent a combination of atelectasis but more con fluent changes suggesting more of a pneumonic type process in the retrocardiac region. The right lung appears clear. IMPRESSION: Left lower lobe pneumonia. POS: YANA
[2019-09-06 20:32] LABS: Anisocytosis MODERATE=16-30 cells (100X) (0-5/hpf); Band 15 % (5-11); Elliptocytes SLIGHT = 2-5 cells (100X) (0-1/hpf); Hypochromia SLIGHT = 6-15 cells (100X) (0-5/hpf); Lymphocytes 5 % (21-51); MDiff Complete? YES; Metamyelocyte 2 % (0-0); Microcytosis SLIGHT = 6-15 cells (100X) (0-5/hpf); Monocytes 4 % (0-10); Myelocyte 1 % (0-0); Neutrophil 72 % (42-75); Ovalocytes SLIGHT = 2-5 cells (100X) (0-1/hpf); Platelet Morphology Comment Appears Adequate; Polychromasia SLIGHT = 2-3 cells (100X) (0-2/hpf); Schistocytes SLIGHT = 2-5 cells (100X) (0-1/hpf); Target Cells SLIGHT = 2-5 cells (100X) (0-1/hpf)
[2019-09-06 20:38] LABS: ALT (SGPT) 29 U/L (8-55); AST (SGOT) 26 U/L (5-34); Albumin 3.9 g/dL (3.4-4.8); Alkaline Phosphatase 121 U/L (40-110); Anion Gap 19 mmol/L (10-20); BUN (Urea Nitrogen) 41 mg/dL (9.8-20.1); Bilirubin, Total 0.3 mg/dL (0.2-1.2); Calc. Creatinine Clearance 0 mL/min (70-130); Calcium 10.1 mg/dL (7.8-10.44); Carbon Dioxide 25 mmol/L (23-31); Chloride 108 mmol/L (98-107); Estimated GFR-MDRD 29; Globulin 4.4 g/dL (2.4-3.5); Potassium 4.6 mmol/L (3.5-5.1); Protein, Total 8.3 g/dL (6.0-8.3); Sodium 147 mmol/L (136-145)
[2019-09-06 20:41] LABS: Bacteria/HPF 2+ HPF (None Seen); Bilirubin Negative (Negative); Blood, Urine Negative (Negative); Clarity Clear (Clear); Glucose, Urine (Dipstick) Greater than 1000 mg/dL (Negative); Leukocyte 75 Leu/uL (Negative); Nitrite Negative (Negative); Protein, Urine (Dipstick) 20 mg/dL (Neg-Trace); RBC/HPF 0-3 HPF (0-3); Squamous Epithelial 0-3 HPF (0-3); Urobilinogen Normal mg/dL (Less than 2)
[2019-09-06 20:55] LABS: Glucose 621 mg/dL (83-110)
[2019-09-06] MEDS ORDERED: Acetaminophen 650 MG Suppository PR PRN (21:16)
[2019-09-06] MEDS ORDERED: Dextrose 50% Abboject 50 ML SYRINGE SLOW IVP PRN (21:16)
[2019-09-06] MEDS ORDERED: Dextrose 5% in Water 1,000 ML IV PRN (21:16)
[2019-09-06] MEDS ORDERED: Sodium Chloride 0.9% 1,000 ML IV SCH (21:30)
[2019-09-06] MEDS ORDERED: PROVENTIL INHALER 6.7 G (200 INHALATIONS) INH PRN (21:33)
--- NOTE | 2019-09-06 22:16 | HP ---
CHIEF COMPLAINT: Cough and wheezing. HISTORY OF PRESENT ILLNESS: Ms. Castrejon is an 79-year-old female with past medical history of COPD, chronic kidney disease, Alzheimer's dementia, hypertension, GERD, among others; was brought from a group home by EMS with wheezing and coughing. The cough is described as wet. Workup in the emergency room, the patient was tachypneic with respiratory rate in the 30s/40s. Oxygen saturation was 99% on 4 L/minute nasal cannula. Chest x-ray showed left lower lobe pneumonia. The patient also was found to have worsening of her kidney function with a creatinine of 2.0, baseline creatinine around 1.4. She also was found to have elevated lactic acid of 2.4, elevated sodium of 147, glucose was elevated at 621. Anion gap is normal. WBC count elevated at 15.7. Septic workup including viral panel/COVID testing was done in the ED. The patient was started on IV antibiotics. Also, her urine showed urinary tract infection. The patient is being admitted to the hospital for further management. PAST MEDICAL HISTORY: As mentioned above in history of present illness. PAST SURGICAL HISTORY: No surgical history reported. The patient unable to give any history. PAST PSYCHIATRIC HISTORY: Schizophrenia. SOCIAL HISTORY: The patient lives in a long-term facility group home. Unknown if there is a history of smoking or alcohol drinking. HOME MEDICATIONS: Please see home medication reconciliation form for updated medications. ALLERGIES: NO KNOWN ALLERGIES. REVIEW OF SYSTEMS: Unable to obtain due to patient's underlying medical condition. PHYSICAL EXAMINATION: GENERAL: The patient is awake, alert, in moderate respiratory distress, tachypneic. VITAL SIGNS: Pulse is 110, blood pressure 160/90, respiratory rate is 35, oxygen saturation is 99% on 4 L/minute nasal cannula, temperature is 99. HEAD AND NECK: Normocephalic, atraumatic. Neck is supple. No JVD. CHEST: Coarse bilateral breath sounds. HEART: S1, S2. Regular. Tachycardic. ABDOMEN: Soft, nontender. Bowel sounds present. NEUROLOGIC: Awake, alert, moving extremities. PSYCHIATRIC: Unable to assess. EXTREMITIES: No clubbing, no cyanosis. GENITOURINARY: No suprapubic tenderness. No flank tenderness. LABORATORY DATA: As mentioned above in history of present illness. Chest x-ray, left lower lobe pneumonia. ASSESSMENT: 1. Sepsis. 2. Pneumonia, healthcare associated/viral. 3. Suspected atypical/viral/COVID infection. 4. Chronic obstructive pulmonary disease. 5. Diabetes mellitus with hyperglycemia. 6. Dementia, Alzheimer's. 7. Acute on chronic renal failure. PLAN: 1. Admit to IMCU. 2. Septic workup including blood cultures, urine cultures, viral panel/COVID testing done. 3. IV antibiotics. The patient was given azithromycin and ceftriaxone. We will start the patient on vancomycin and cefepime, awaiting culture results. 4. Oxygen to keep saturation more than 92%. 5. Bronchodilators. 6. Reconcile home medications. 7. DVT prophylaxis as appropriate. 8. GI prophylaxis. ED physician discussed the case with patient's daughter/family and as of now, the patient is a full code, but if the COVID testing comes back positive, family would like to have the patient DNR. This is as per ER physician. Expected length of stay, 3 midnights or more. Job ID: [id number]
[2019-09-06 22:55] VITALS: BMI 23.3
[2019-09-06 23:11] LABS: Lactic Acid 2.1 mmol/L (0.5-2.2)
[2019-09-06] MEDS: Cefepime 1 GM in Sodium Chloride 0.9% 100 ML IVPB SCH (23:14)
[2019-09-06] MEDS: Sodium Chloride 0.45% 1,000 ML IV SCH (23:15)
[2019-09-06] MEDS: HumaLOG 300 UNITS/3 ML VIAL SC PRN (23:23)
[2019-09-06] MEDS ORDERED: Vancomycin HCl 1.25 GM in Sodium Chloride 0.9% 250 ML 250 ML IVPB SCH (23:59)
[2019-09-07] MEDS: HumaLOG 300 UNITS/3 ML VIAL SC PRN (03:01)
[2019-09-07 03:51] LABS: #Basophils 0.1 thou/uL (0.0-0.2); #Eosinphils 0.1 thou/uL (0.0-0.7); #Lymphocytes 1.7 thou/uL (1.20-3.40); #Monocytes 1.7 thou/uL (0.11-0.59); #Neutrophils 13.1 thou/uL (1.40-6.50); %Basophils 0.3 % (0.0-1.0); %Eosinophils 0.3 % (0.0-10.0); %Lymphocytes 10.4 % (21.0-51.0); %Monocytes 10.3 % (0.0-10.0); %Neutrophils 78.7 % (42.0-75.0); Hemoglobin 12.2 g/dL (12.0-16.0); Mean Corpuscular HGB CONC 28.5 g/dL (32.0-36.0); Mean Corpuscular Hemoglobin 19.9 pg (27.0-31.0); Mean Corpuscular Volume 69.7 fL (78.0-98.0); Mean Platelet Volume 8.7 fL (7.4-10.4); Platelet Count 288 thou/uL (130-400); RBC Distribution Width 18.6 % (11.5-14.5); Red Blood Cell (RBC) Count 6.12 mill/uL (4.20-5.40); White Blood Cell (WBC) Count 16.7 thou/uL (4.8-10.8)
[2019-09-07 04:07] LABS: ALT (SGPT) 27 U/L (8-55); AST (SGOT) 20 U/L (5-34); Albumin 3.7 g/dL (3.4-4.8); Alkaline Phosphatase 102 U/L (40-110); Anion Gap 14 mmol/L (10-20); BUN (Urea Nitrogen) 36 mg/dL (9.8-20.1); Bilirubin, Total 0.2 mg/dL (0.2-1.2); Calc. Creatinine Clearance 27 mL/min (70-130); Calcium 9.8 mg/dL (7.8-10.44); Carbon Dioxide 26 mmol/L (23-31); Chloride 116 mmol/L (98-107); Estimated GFR-MDRD 37; Globulin 4.1 g/dL (2.4-3.5); Glucose 340 mg/dL (83-110); Potassium 4.3 mmol/L (3.5-5.1); Protein, Total 7.8 g/dL (6.0-8.3); Sodium 152 mmol/L (136-145)
[2019-09-07] MEDS ORDERED: Lorazepam 2 MG/ML VIAL SLOW IVP SCH (06:30)
--- NOTE | 2019-09-07 08:30 | RAD ---
Chest one view HISTORY: Pneumonia. Follow-up. COMPARISON: 09/06/2019. FINDINGS: Cardiac silhouette is rotated leftward with the patient. Pulmonary vasculature is unremarka ble. Ill-defined parenchymal infiltrate at the left base is similar in appearance to the prior exam allowi ng for differences in technique. Patchy infiltrate at the right lung base has progressed. No evidence of pneumothorax. There are degenerative changes of the shoulders. monitoring engineer leads overlie the chest. IMPRESSION : Developing right basilar infiltrate in addition to the stable left basilar infiltrate.
[2019-09-07] MEDS: Heparin 5,000 UNITS/ML VIAL SC SCH ×2 (09:43→21:53)
[2019-09-07] MEDS: Cefepime 1 GM in Sodium Chloride 0.9% 100 ML IVPB SCH ×2 (09:43→22:13)
[2019-09-07] MEDS: Famotidine/PF 20 mg/2ml Vial SLOW IVP SCH (09:43)
[2019-09-07] MEDS: Sodium Chloride 0.45% 1,000 ML IV SCH (15:21)
--- NOTE | 2019-09-07 19:16 | CON ---
DATE OF CONSULTATION: 09/07/2019 CHIEF COMPLAINT: Pneumonia. PRESENT ILLNESS: Ms. Castrejon is an 79-year-old female who is a resident of a [facility]. The patient was brought to the emergency room with complaints of wheezing and coughing. While in the emergency room, she was tachypneic, but adequately oxygenated with supplemental oxygen by nasal cannula. X-ray showed a left basilar consolidation. IV antibiotic therapy was initiated following cultures. She has subsequently been admitted to the hospital and is receiving COVID testing. The patient is unable to give a history due to her underlying dementia. The duration or other specifics regarding this deterioration are unknown to me at this time. SOCIAL HISTORY: The patient is an 79-year-old female, resident of [facility]. She does not have an active alcohol or smoking history. ALLERGIES: SHE HAS NO REPORTED MEDICATION ALLERGIES. MEDICATIONS: Her routine medications include: 1. Aspirin 81 daily. 2. Iron daily. 3. Allopurinol 100 mg daily. 4. Seroquel 25 mg daily. 5. Multivitamin daily. 6. Advair b.i.d. 7. Systane Ultra ophthalmic drops each eye t.i.d. 8. Zofran p.r.n. PAST MEDICAL HISTORY: Remarkable for COPD, chronic kidney disease, Alzheimer dementia, hypertension, reflux disease. At this time, she is a full code case; however, the family is willing to consider DNR if she is found to be COVID positive. She additionally has a history of schizophrenia. REVIEW OF SYSTEMS: Unobtainable. Notable only as described above. FAMILY HISTORY: Noncontributory. PHYSICAL EXAMINATION: VITAL SIGNS: Today include blood pressure 175/93, heart rate 66, respiratory rate 35. She is afebrile. GENERAL: She is an elderly female with [id number] increased work of breathing and coarse rattly upper airway sounds heard across the room. She does not respond to verbal stimuli. HEENT: She has no icterus. NECK: She has external jugular venous distention while supine. LUNGS: Show bilateral coarse rales, especially in the lower lung zones. HEART: Regular rate and rhythm by monitor. Heart sounds could not be heard given her coarse lung sounds. ABDOMEN: Soft. There is no organomegaly and bowel sounds are normal. She does not have any edema. NEUROLOGIC: Finds her to be not responsive to command or verbal stimuli. LABORATORY DATA: Chest x-ray shows very small areas of consolidation at the base, on the left, obscured to some degree by the cardiac silhouette. White count 16,700, hemoglobin is 12.2, platelet count 288,000. Her initial hemogram on admission included 15% neutrophil bands. Electrolytes include sodium 152, potassium 4.3, chloride 116, CO2 of 26, BUN 36, creatinine 1.6, glucose ranges from 70 to 450. Her lactic acid was 2.1. Calcium and liver tests are normal. Her urinalysis showed 7 to 10 white cells. Urine cultures presumptively positive for E coli. Blood cultures are negative x24 hours. Her influenza swab is negative for both A and B influenza. RSV panel was negative except for rhinovirus, which was detected. COVID is pending. Group A strep screen is positive. IMPRESSION: 1. Pneumonia in a [facility] patient. She is immunocompromised by virtue of her age, [facility] resident, and dementia. She does not appear to have a great functional cough. At this point, she is adequately ventilating and is not required. 2. Acute renal insufficiency present secondary to volume depletion. 3. Urinary tract infection. 4. Dementia with generalized debility. RECOMMENDATIONS: She is on an empiric broad-spectrum antibiotic coverage pending further culture and sensitivity data. She is on COVID rule out, although my index of suspicion is fairly low at this point, especially in light of an alternative diagnosis. She is presently a full code status. The family would be willing to reconsider if she becomes COVID positive. We will continue supportive care including general hydration. At this point, she does not require intubation. Thank you for this consultation. Job ID: [id number]
--- NOTE | 2019-09-07 19:59 | PDOC.EVN ---
Event Note - Event Note Event Note: Chart reviewed. Events noted. Pt was not seen due to PPE preservation policy. Pt seen by PCCM today. Briefly, pt admitted for COVID r/o and pneumonia. COVID result pending. Acute on chronic stage 3 CKD improved.
[2019-09-07] MEDS: Azithromycin 500 MG in Sodium Chloride 0.9% 250 ML 250 ML IVPB SCH (21:53)
[2019-09-07 23:16] LABS: Vancomycin, Random 8.9 ug/mL (See Comment)
[2019-09-07] MEDS ORDERED: Vancomycin HCl 500 MG in Sodium Chloride 0.9% 100 ML IVPB SCH (23:59)
[2019-09-08] MEDS: Vancomycin 1 GM in Premix Bag 1 BAG IVPB SCH ×2 (01:10→23:17)
[2019-09-08] MEDS: Sodium Chloride 0.45% 1,000 ML IV SCH ×3 (01:10→23:17)
[2019-09-08] MEDS ORDERED: Lorazepam 2 MG/ML VIAL SLOW IVP SCH ×2 (01:45→20:00)
[2019-09-08] MEDS: Heparin 5,000 UNITS/ML VIAL SC SCH ×2 (09:34→19:55)
[2019-09-08] MEDS: Famotidine/PF 20 mg/2ml Vial SLOW IVP SCH (09:34)
--- NOTE | 2019-09-08 11:52 | PRG ---
DATE OF SERVICE: 09/08/2019 SUBJECTIVE: This morning, she remains in the MICU, contracted. No significant verbal communication. X-ray shows right lower lobe pneumonia. Serology, viral infection pending. Urine is E coli, sensitive to antibiotics. OBJECTIVE: VITAL SIGNS: Saturations are 100% on 2 L, blood pressure 132/83, and respiratory rate 18. CHEST: Reveals rhonchi. CARDIAC: Normal S1 and S2. ABDOMEN: No masses. ASSESSMENT: 1. Right lower lobe pneumonia. Awaiting COVID serology. 2. Advanced age. 3. Severe deconditioning. PLAN: Continue present antibiotic coverage including Zithromax. We will probably discontinue vancomycin tomorrow. PT, supportive care. We will follow. Job ID: [id number]
--- NOTE | 2019-09-08 18:38 | PDOC.EVN ---
Event Note - Event Note Event Note: Record reviewed. Patient seen by Pulm. In keeping with the PPE conservation effort, will defer exam to the Pulm/CC doc. Suspicion is low for Covid and more consistent with bacterial pneumonia. Continue IV abx.
[2019-09-08] MEDS: Cefepime 1 GM in Sodium Chloride 0.9% 100 ML IVPB SCH (19:56)
[2019-09-08] MEDS: Azithromycin 500 MG in Sodium Chloride 0.9% 250 ML 250 ML IVPB SCH (19:56)
[2019-09-09 01:15] LABS: Vancomycin, Random 23.7 ug/mL (See Comment)
[2019-09-09 03:53] LABS: #Basophils 0.1 thou/uL (0.0-0.2); #Eosinphils 0.1 thou/uL (0.0-0.7); #Lymphocytes 1.8 thou/uL (1.20-3.40); #Monocytes 1.6 thou/uL (0.11-0.59); #Neutrophils 11.1 thou/uL (1.40-6.50); %Eosinophils 0.8 % (0.0-10.0); %Lymphocytes 11.8 % (21.0-51.0); %Monocytes 11.6 % (0.0-10.0); %Neutrophils 75.8 % (42.0-75.0); Hemoglobin 12.6 g/dL (12.0-16.0); Mean Corpuscular HGB CONC 29.3 g/dL (32.0-36.0); Mean Corpuscular Hemoglobin 20.2 pg (27.0-31.0); Mean Corpuscular Volume 68.7 fL (78.0-98.0); Mean Platelet Volume 7.6 fL (7.4-10.4); Platelet Count 226 thou/uL (130-400); RBC Distribution Width 18.7 % (11.5-14.5); Red Blood Cell (RBC) Count 6.27 mill/uL (4.20-5.40); White Blood Cell (WBC) Count 14.7 thou/uL (4.8-10.8)
[2019-09-09 03:56] LABS: Anion Gap 12 mmol/L (10-20); BUN (Urea Nitrogen) 22 mg/dL (9.8-20.1); Calc. Creatinine Clearance 35 mL/min (70-130); Calcium 8.6 mg/dL (7.8-10.44); Carbon Dioxide 24 mmol/L (23-31); Chloride 112 mmol/L (98-107); Estimated GFR-MDRD 50; Glucose 205 mg/dL (83-110); Potassium 4.2 mmol/L (3.5-5.1); Sodium 144 mmol/L (136-145)
--- NOTE | 2019-09-09 09:54 | PRG ---
DATE OF SERVICE: 09/09/2019 SUBJECTIVE: This morning, demented lady. OBJECTIVE: VITAL SIGNS: Saturations 100% on 3 L, blood pressure 182/101, respiratory rate 18. CHEST: No wheezing or crackles. CARDIAC: Normal S1 and S2. No gallops. ABDOMEN: Soft. LABORATORY DATA: White count is 14,000. Electrolytes are normal. Serology pending. Urine is showing E coli. ASSESSMENT: pneumonia, dementia, urinary tract infection. PLAN: I am going to discontinue vancomycin. Await COVID results. If they are negative, probably switch over to oral antibiotics. Job ID: [id number]
[2019-09-09] MEDS: Famotidine/PF 20 mg/2ml Vial SLOW IVP SCH (09:56)
[2019-09-09] MEDS: Heparin 5,000 UNITS/ML VIAL SC SCH ×2 (09:57→21:19)
[2019-09-09] MEDS: Sodium Chloride 0.45% 1,000 ML IV SCH (17:53)
[2019-09-09 20:38] LABS: Vancomycin, Trough 11.9 ug/mL
[2019-09-09] MEDS: Cefepime 1 GM in Sodium Chloride 0.9% 100 ML IVPB SCH (21:18)
[2019-09-09] MEDS: Azithromycin 500 MG in Sodium Chloride 0.9% 250 ML 250 ML IVPB SCH (21:18)
[2019-09-09] MEDS: Lorazepam 2 MG/ML VIAL SLOW IVP PRN (21:20)
[2019-09-10] MEDS: Sodium Chloride 0.45% 1,000 ML IV SCH (05:18)
[2019-09-10] MEDS: Famotidine/PF 20 mg/2ml Vial SLOW IVP SCH (08:24)
[2019-09-10] MEDS: Heparin 5,000 UNITS/ML VIAL SC SCH ×2 (08:24→22:09)
--- NOTE | 2019-09-10 09:30 | PRG ---
DATE OF SERVICE: 09/10/2019 SUBJECTIVE: Sats are 96% on 3 L, blood pressure _122\72 respiratory rate 18. Still awaiting results of the COVID serology. The patient has dementia, unable to get significant history from her. OBJECTIVE: VITAL SIGNS: Saturations are 96% on 3 L, blood [id number] respiratory rate 18. CHEST: No wheezing or crackles. CARDIAC: Normal S1, S2. No gallops. ABDOMEN: No masses. ASSESSMENT AND PLAN: Pneumonia, dementia. Cultures so far all negative. Zithromax, Maxipime. Still awaiting results of the serology. They can decide thereafter additional plans. Probably switch her to oral medication. COVID serology is negative. We will follow. Job ID: [id number] MTDD
--- NOTE | 2019-09-10 13:56 | EKG ---
Test Reason : Blood Pressure : / mmHG Vent. Rate : 120 BPM Atrial Rate : 120 BPM P-R Int : 128 ms QRS Dur : 068 ms QT Int : 288 ms P-R-T Axes : 080 082 -19 degrees QTc Int : 407 ms Sinus tachycardia Biatrial enlargement Left ventricular hypertrophy with repolarization abnormality Abnormal ECG Confirmed by RAYMUNDO FOSTER DO ([id number]), film or videotape editor ROSELYN PARR ([id number] on 09/10/2019 1:55:40 PM Referred By: Confirmed By:RAYMUNDO FOSTER DO
[2019-09-10] MEDS: Dextrose 5 %-0.45 % NaCl 1,000 ML IV SCH (18:18)
[2019-09-10] MEDS: Cefepime 1 GM in Sodium Chloride 0.9% 100 ML IVPB SCH (22:07)
[2019-09-10] MEDS: Azithromycin 500 MG in Sodium Chloride 0.9% 250 ML 250 ML IVPB SCH (22:54)
[2019-09-11] MEDS: Lorazepam 2 MG/ML VIAL SLOW IVP PRN (06:23)
[2019-09-11] MEDS: Heparin 5,000 UNITS/ML VIAL SC SCH ×2 (08:16→20:02)
[2019-09-11] MEDS: Famotidine/PF 20 mg/2ml Vial SLOW IVP SCH (08:16)
--- NOTE | 2019-09-11 10:07 | PRG ---
DATE OF SERVICE: 09/11/2019 SUBJECTIVE: Ruby Castrejon whose COVID serology was negative yesterday. OBJECTIVE: VITAL SIGNS: Temperature 97, pulse 108, respiratory rate 18, sats are 100% on 2 L, blood pressure 136/83. GENERAL: Encephalopathic, demented, unable to get any history. CHEST: Decreased breath sounds. No wheezing. CARDIAC: Normal S1, S2. No gallops. ASSESSMENT: Urinary tract infection, sensitive to pretty much all antibiotics, right lower lobe pneumonia, severe dementia. Switch over to oral antibiotics. Eventually home. Pulmonary/Critical Care will follow at a distance. Nothing additional to offer at this time. Job ID: [id number]
--- NOTE | 2019-09-11 13:34 | PDOC.PALCO ---
Palliative Care Consult - Consult Details Requesting Physician: Dr Hawkins Reason for Consult: goals of care, advance directives assistance Family Members Present: Daughter Kinga by phone - Pertinent HPI 79 year old female who resides at a nursing facility. Multiple morbidities, patient is bed bound and totally dependent for all ADL. Incontinent, aphagic. At senior care laurence was noted to have wheezing and coughing, EMS transferred to [facility] for further evaluation. Found to have lower lobe pneumonia, poor kidney function, hyperglycemia, and elevated white cough. Placed on IV abx and admitted for further medical management and evaluation. - Pertinent PMH Alzeheimer, HTN, GERD, COPD, CKD - Social History Smoking Status: Unknown if ever smoked Smoking: no tobacco exposure Living Situation: senior care resident - Medications MAR Reviewed: Yes - Allergies Allergies/Adverse Reactions: Allergies Allergy/AdvReac Type Severity Reaction Status Date / Time No Known Allergies Allergy Verified 09/06/19 22:50 - Subjective Sleeping, lying in position on right side, mild contractures. - ROS Non Response: due to mental status - Objective Vital Signs: Vital Signs - Most Recent Temp Pulse Resp BP Pulse Ox 97.4 F L 108 H 18 136/83 100 09/11/19 07:15 09/11/19 07:15 09/11/19 07:15 09/11/19 07:15 09/11/19 08:00 Palliative Performance Scale: 20 - Physical Exam Constitutional: cachectic, confusion, ill appearing HEENT: moist MMs, sclera anicteric, poor dentition Respiratory: unlabored breathing, diminished lung sound Cardiovascular: RRR Gastrointestinal: soft, non-tender, incontinent Genitourinary: incontinent Musculoskeletal: no clubbing, diffuse muscle atrophy Deviation from normal: mild contractures Neurology: moves all 4 limbs Skin: cap refill <2 seconds, fragile Deviation from normal: abrasion to bony prominence of toes Deviation from normal: inable to determine orientation - Problem List (1) Physical debility Code(s): R53.81 - OTHER MALAISE Current Visit: Yes Status: Acute (2) Dysphagia Code(s): R13.10 - DYSPHAGIA, UNSPECIFIED Current Visit: Yes Status: Acute (3) EDNA (acute kidney injury) Code(s): N17.9 - ACUTE KIDNEY FAILURE, UNSPECIFIED Current Visit: No Status : Acute (4) Altered mental status Code(s): R41.82 - ALTERED MENTAL STATUS, UNSPECIFIED Current Visit: No Status: Acute (5) Pneumonia Code(s): J18.9 - PNEUMONIA, UNSPECIFIED ORGANISM Current Visit: No Status: Acute (6) Sepsis Code(s): A41.9 - SEPSIS, UNSPECIFIED ORGANISM Current Visit: No Status: Acute (7) Alzheimers disease Code(s): G30.9 - ALZHEIMER'S DISEASE, UNSPECIFIED; F02.80 - DEMENTIA IN OTH DISEASES CLASSD ELSWHR W/O BEHAVRL DISTURB Current Visit: No Status: Chronic (8) DM2 (diabetes mellitus, type 2) Current Visit: No Status: Chronic Qualifiers: Diabetes mellitus exterminator helper termite insulin use: without exterminator helper termite use - Plan/Recommendations Plan: Assessed patient, spoke with patient daughter Kinga by phone. Discussed decline related to Alzheimer's dementia. Discussed findings in relation to speech evaluation and dysphagia. Revisited DNAR status. Elected to transition Ms Castrejon to hospice care at the facility she currently resides at, diet with risk , and DNAR. Emotional support and Therapeutic listening. Kinga relayed her mother would not want any further aggressive measures. DNAR Communicated with CM family electing hospice Diet with risk Communicated with Dr Hawkins [[id number]] minutes spent on this encounter with >50% of the time in counseling and coordination of care. Thank you for this very appropriate consult.
[2019-09-11] MEDS: Dextrose 5 %-0.45 % NaCl 1,000 ML IV SCH (14:25)
--- NOTE | 2019-09-11 18:31 | PDOC.HOSPP ---
- Subjective Encounter Date: 09/11/19 Subjective: Non-verbal. - Objective Vital Signs & Weight: Vital Signs (12 hours) Temp Pulse Resp BP Pulse Ox 09/11/19 08:00 100 09/11/19 07:15 97.4 F L 108 H 18 136/83 100 Weight Admit Weight 136 lb Weight 136 lb Most Recent Monitor Data Heart Rate from ECG 97 NIBP 164/109 NIBP BP-Mean 127 Respiration from ECG 20 SpO2 100 I&O: 09/10/19 09/11/19 09/12/19 06:59 06:59 06:59 Intake Total 1950 900 Output Total 1050 775 Balance 900 125 Result Diagrams: 09/09/19 03:37 09/09/19 03:37 Additional Labs: Accuchecks 09/11/19 09/11/19 09/11/19 16:04 11:17 03:04 POC Glucose 161 H 195 H 154 H Hospitalist ROS - Medication Medications: Active Medications Generic Name Dose Route Start Last Admin Trade Name Freq PRN Reason Stop Dose Admin Dextrose/Water 25 gm 09/06/19 21:16 09/07/19 06:56 Dextrose 50% SLOW IVP 25 gm PRN PRN Administration Hypoglycemia Famotidine 20 mg 09/07/19 09:00 09/11/19 08:16 Pepcid SLOW IVP 20 mg QAM KARI Administration Heparin Sodium (Porcine) 5,000 units 09/07/19 09:00 09/11/19 08:16 Heparin SC 5,000 units BID KARI Administration Sodium Chloride 1,000 mls @ 0 mls/hr 09/06/19 21:30 09/06/19 23:14 Normal Saline 0.9% IV 1,000 mls .Q0M KARI Administration As Directed Dextrose/Sodium Chloride 1,000 mls @ 50 mls/hr 09/10/19 15:30 09/11/19 14:25 D5 1/2 Ns IV Not Given .Q20H KARI Insulin Human Lispro 0 units 09/06/19 21:16 09/07/19 03:01 Humalog SC 6 unit .MILD SLIDING SCALE PRN Administration Mild Correctional Scale Lorazepam 1 mg 09/09/19 13:42 09/11/19 06:23 Ativan SLOW IVP 1 mg Q4H PRN Administration Anxiety/Agitation - Exam General Appearance: NAD General - other findings: Contracted with torso rotated left. Does not interact. Heart: RRR, no murmur, no gallops, no rubs, normal peripheral pulses Respiratory: CTAB, no wheezes, no rales Respiratory - other findings: Cannot cooperate with exam. Gastrointestinal: soft, non-tender, non-distended, normal bowel sounds, no palpable masses Extremities: no cyanosis, no clubbing, no edema Skin: normal turgor Musculoskeletal: generalized weakness Psychiatric: not oriented Psychiatric - other findings: Dementia Hosp A/P (1) Acute metabolic encephalopathy Code(s): G93.41 - METABOLIC ENCEPHALOPATHY Status: Acute (2) Dysphagia Code(s): R13.10 - DYSPHAGIA, UNSPECIFIED Status: Acute (3) Physical debility Code(s): R53.81 - OTHER MALAISE Status: Acute (4) EDNA (acute kidney injury) Code(s): N17.9 - ACUTE KIDNEY FAILURE, UNSPECIFIED Status: Acute (5) Pneumonia Code(s): J18.9 - PNEUMONIA, UNSPECIFIED ORGANISM Status: Acute (6) Sepsis Code(s): A41.9 - SEPSIS, UNSPECIFIED ORGANISM Status: Acute (7) UTI (urinary tract infection) Status: Acute Qualifiers: Urinary tract infection type: acute cystitis Hematuria presence: without hematuria Qualified Code(s): N30.00 - Acute cystitis without hematuria (8) Alzheimers disease Code(s): G30.9 - ALZHEIMER'S DISEASE, UNSPECIFIED; F02.80 - DEMENTIA IN OTH DISEASES CLASSD ELSWHR W/O BEHAVRL DISTURB Status: Chronic (9) COPD (chronic obstructive pulmonary disease) Status: Chronic Qualifiers: COPD type: chronic bronchitis (10) Chronic kidney disease, stage 3 Code(s): N18.3 - CHRONIC KIDNEY DISEASE, STAGE 3 (MODERATE) Status: Chronic (11) DM2 (diabetes mellitus, type 2) Status: Chronic Qualifiers: Diabetes mellitus correction insulin use: without exterminator helper use (12) Dementia Code(s): F03.90 - UNSPECIFIED DEMENTIA WITHOUT BEHAVIORAL DISTURBANCE Status: Chronic Qualifiers: Dementia type: Alzheimer's disease (13) GERD (gastroesophageal reflux disease) Code(s): K21.9 - GASTRO-ESOPHAGEAL REFLUX DISEASE WITHOUT ESOPHAGITIS Status: Chronic Qualifiers: Esophagitis presence: esophagitis presence not specified Qualified Code(s) : K21.9 - Gastro-esophageal reflux disease without esophagitis - Plan Appears to be medically stable at this time. She has been re-assessed by [facility] and is not safe to swallow any consistency. She would likely pull out a PEG. Consulted PCT and they spoke with the patient's family. She is DNAR here. She will likely go back to [place] as soon as tomorrow. Contemplating hospice and possibly taking her home on hospice. They agreed to po feeds with risk. [facility] recommended pureed with nectar thick liquids. Blood sugars are good. E. coli UTI covered with Levaquin.
[2019-09-11] MEDS ORDERED: Doxycycline 100 MG CAP PO SCH (21:00)
[2019-09-12] MEDS: Dextrose 5 %-0.45 % NaCl 1,000 ML IV SCH (05:38)
[2019-09-12] MEDS: Lorazepam 2 MG/ML VIAL SLOW IVP PRN (05:39)
[2019-09-12] MEDS: Famotidine/PF 20 mg/2ml Vial SLOW IVP SCH (09:36)
[2019-09-12] MEDS: Heparin 5,000 UNITS/ML VIAL SC SCH (09:36)
[2019-09-12 16:35] VITALS: BP 130/70; TEMP 97.7
--- NOTE | 2019-09-13 05:52 | DIS ---
DATE OF ADMISSION: 09/06/2019 DATE OF DISCHARGE: 09/12/2019 DISCHARGE DIAGNOSES: 1. Sepsis. 2. Pneumonia. 3. Chronic obstructive pulmonary disease. 4. Diabetes mellitus. 5. Alzheimer's type dementia. 6. Sadnu-fw-iymycjt kidney disease. 7. Dysphagia with significant cognitive component. 8. Acute metabolic encephalopathy. 9. Physical debility. 10. Urinary tract infection, growing E coli. 11. Gastroesophageal reflux. HISTORY: This patient is an 79-year-old female with dementia, who tends to be somewhat rotated in her thorax to her left fairly chronically. [facility] with [facility]. The patient in the emergency department was found to have evidence of urinary tract infection and pneumonia. She was subsequently admitted to the hospital. HOSPITAL COURSE: The patient did initially have a COVID test ordered and was placed in the intermediate care unit. She was found to have acute renal injury as well likely due to some dehydration or volume depletion. She was hydrated and had some improvement with that. The patient was noted to have chronic dementia and was unable to adequately feed herself well and appeared to be a significant cognitive issue related to that. She was evaluated daily and never reached a point where she was felt to be comfortable with any particular type of diet. She did have no further fever. Her respiratory status was stable and after her COVID test was negative, she was moved to a medical floor bed where she continued on the antibiotics. With stability of her vital signs and oxygen level, she was felt to be appropriate for discharge. However, her inability to take p.o., prompted evaluation with Palliative Care. The palliative care team discussed the case with the patient's family. There was concern that if a PEG tube was placed, the patient would remove it and it was not felt to be a great long-term option. The family agreed to diet with risk and were comfortable with the patient being discharged back to the facility. They contemplated and are still contemplating changing her over to hospice and potentially taking her home with hospice care and conversation should be pursued further at the nursing facility. PHYSICAL EXAMINATION: VITAL SIGNS: On the day of discharge, temperature was 97.6, pulse ranged from 98-120, O2 saturations 100% on 2 L nasal cannula, BP was 131/71. She was intermittently awake. She is not significantly verbally interactive due to her dementia. HEART: Regular. LUNGS: Clear. ABDOMEN: Soft, nontender, and nondistended. EXTREMITIES: No edema. DISPOSITION: The patient is discharged back to her nursing facility, where there would be some consideration going forward to consider hospice. DIET: The patient will be on a regular diet with pureed food, nectar thick liquids and diet with risk of aspiration. MEDICATIONS: She will continue on: 1. Levaquin 500 mg daily. 2. Allopurinol 100 mg daily. 3. Aspirin 81 mg daily. 4. Ferrous sulfate 325 daily. 5. Seroquel 25 at bedtime. 6. Polyethylene glycol one drop each eye t.i.d. 7. Multivitamin one p.o. daily. 8. Ondansetron 4 mg q.4 hours p.r.n. 9. Guaifenesin 200 q.6h p.r.n. 10. Tessalon p.r.n. 11. Advair Diskus 250/50 one inhalation b.i.d. 12. Arginaid powder one packet b.i.d. FOLLOWUP: She is to follow up with Dr. Lira and Dr. Bennett, and she can return to the hospital at anytime should she have the need to do so. Job ID: [id number]
== END 2019-09-12 16:22 | DRG 871 ==
LOC: ERS 19:00 → IMCU/EMU 21:37 → T4-A 09-10 18:29
PROVIDERS: ADMIT Internal Medicine; ATTEND Internal Medicine
PROC: 8E0ZXY6 Isolation (ICD-10-PCS; principal; 2019-09-06)
DX: A41.9 Sepsis, unspecified organism (principal); J18.9 Pneumonia, unspecified organism; G93.41 Metabolic encephalopathy; J44.0 Chronic obstructive pulmonary disease with (acute) lower respiratory infection; N17.9 Acute kidney failure, unspecified; N39.0 Urinary tract infection, site not specified; R64 Cachexia; Z51.5 Encounter for palliative care; Z66 Do not resuscitate; E11.22 Type 2 diabetes mellitus with diabetic chronic kidney disease; G30.9 Alzheimer's disease, unspecified; F02.80 Dementia in other diseases classified elsewhere, unspecified severity, without behavioral disturbance, psychotic disturbance, mood disturbance, and anxiety; R13.10 Dysphagia, unspecified; R53.81 Other malaise; B96.20 Unspecified Escherichia coli [E. coli] as the cause of diseases classified elsewhere; K21.9 Gastro-esophageal reflux disease without esophagitis; N18.3 Chronic kidney disease, stage 3 (moderate); E86.0 Dehydration; E86.9 Volume depletion, unspecified; F20.9 Schizophrenia, unspecified; Z79.4 Long term (current) use of insulin; Z68.23 Body mass index [BMI] 23.0-23.9, adult; Z20.828 Contact with and (suspected) exposure to other viral communicable diseases
CPT/HCPCS: 36415; 36416; 51701; 71045; 80048; 80053; 80202; 81003; 81015; 83605; 85025; 87040; 87077; 87086; 87149; 87186; 87430; 87633; 87804; 93005; 96361; 96365; A4353; J0456; J0692; J0696; J1644; J2060; J3370; J3490; J7050; S0028; U0001